=== PATIENT | male | born 1940 | race Caucasian/White ===

== ENCOUNTER 2016-12-19 18:50 | Inpatient (IN) | payer MEDICARE, OTHER ==
[~2016-12-19] VITALS: Ht 185.4 cm; Wt 69.9 kg
[~2016-12-19 18:50] MED LIST: ACET-73 PO; AMLO5TAB2 PO; FOLI1TAB16 PO; GABA-534 PO; LEVE500T9 PO; MAGN400O4 PO; OMEP20CA10 PO; TRAZ-144 PO; VITAMIN B1 PO
[2016-12-19 19:16] LABS: BASOPHILS % (AUTO) 0.3 % (0.0-2.0); EOSINOPHILS # (AUTO) 0.8 /CMM (0.0-0.7); HEMATOCRIT 35 % (39-51); LYMPHOCYTES # (AUTO) 2.1 /CMM (0.8-4.8); LYMPHOCYTES % (AUTO) 30.8 % (20.0-44.0); MEAN CORPUSCULAR HEMOGLOBIN 31 PG (26.0-33.0); MEAN CORPUSCULAR HGB CONC 34 g/dl (31.0-36.0); MEAN CORPUSCULAR VOLUME 92 fL (80-96); MONOCYTES # (AUTO) 0.8 /CMM (0.1-1.30); MONOCYTES % (AUTO) 11.5 % (2.0-12.0); NEUTROPHILS # (AUTO) 3.2 /CMM (1.8-8.9); NEUTROPHILS % (AUTO) 46.4 % (43.0-81.0); PLATELET COUNT (AUTO) 245 /CMM (150-450); RDW COEFFICIENT OF VARIATION 12.9 (11.5-15.0); RED BLOOD CELL COUNT(AUTO) 3.83 MIL/uL (4.5-6.0); WHITE BLOOD COUNT (AUTO) 6.9 K/uL (4.3-11.0)
[2016-12-19 19:29] LABS: ACETAMINOPHEN 4 ug/ml (10-30); ALANINE AMINOTRANSFERASE 16 U/L (12-78); ALBUMIN 3.1 g/dL (3.4-5.0); ALKALINE PHOSPHATASE 84 U/L (46-116); ASPARTATE AMINOTRANSFERASE 12 U/L (15-37); BILIRUBIN,TOTAL 0.1 mg/dL (0.2-1.0); CALCIUM, SERUM 8.9 mg/dL (8.5-10.1); CARBON DIOXIDE 32 mmol/L (21-32); CHLORIDE 103 mmol/L (98-107); GLUCOSE 109 mg/dL (74-106); POTASSIUM 4.6 mmol/L (3.5-5.1); SODIUM SERUM 138 mmol/L (136-145); UREA NITROGEN, BLOOD 21 mg/dL (7-18)
[2016-12-19 19:38] LABS: ALCOHOL, BLOOD < 5 mg/dL (0-0); SALICYLATE 1.4 mg/dL (2.8-20.0)
[2016-12-19] MEDS ORDERED: MAGNESIUM HYDROXIDE 30 ML UDC PO PRN (23:30)
[2016-12-19] MEDS ORDERED: LORAZEPAM 0.5 MG TABLET PO PRN (23:30)
[2016-12-19] MEDS ORDERED: MAG HYDROX/AL HYDROX/SIMETH 30 ML UDC PO PRN (23:30)
[2016-12-19] MEDS ORDERED: ACETAMINOPHEN 325 MG TABLET PO PRN (23:30)
[2016-12-20 00:38] VITALS: BP 95/50
[2016-12-20 08:00] VITALS: BP 102/59
[2016-12-20] MEDS ORDERED: LEVE250T2 PO (08:21)
[2016-12-20] MEDS ORDERED: THIA100T68 PO (08:21)
[2016-12-20] MEDS ORDERED: MULT-659 PO (08:21)
[2016-12-20] MEDS ORDERED: DOCU-25 PO (08:21)
[2016-12-20] MEDS ORDERED: AMIN30LI4 PO (08:21)
[2016-12-20] MEDS ORDERED: MAGN400O6 PO (08:21)
[2016-12-20] MEDS ORDERED: DEXT1CAP3 PO (08:21)
[2016-12-20] MEDS ORDERED: HYDR-3326 PO (08:21)
[2016-12-20] MEDS ORDERED: ASCO500T9 PO (08:21)
[2016-12-20 09:33] LABS: CREATININE 0.7 mg/dL (0.6-1.3)
[2016-12-20] MEDS ORDERED: MAGNESIUM HYDROXIDE 30 ML UDC PO PRN (12:00)
[2016-12-20] MEDS ORDERED: HYDROCODONE/APAP 5/325MG 1 EACH TABLET PO SCH (13:00)
[2016-12-20] MEDS ORDERED: HYDROCODONE/APAP 5/325MG 1 EACH TABLET PO PRN (13:00)
[2016-12-20 13:33] LABS: IRON, SERUM 88 ug/dl (50-175); TOTAL IRON BINDING CAPACITY 214 ug/dl (250-450)
[2016-12-20 16:00] VITALS: BP 129/66
[2016-12-20] MEDS: ASCORBIC ACID 500 MG TABLET PO SCH (17:52)
[2016-12-20] MEDS: PROSOURCE / PROSTAT (PYXIS) 30 ML UDC PO SCH (17:52)
[2016-12-20] MEDS: LEVETIRACETAM (250 MG) 250 MG TABLET PO SCH (21:28)
[2016-12-20] MEDS: ZOLPIDEM TARTRATE 5 MG TABLET PO PRN (21:47)
[2016-12-21] MEDS ORDERED: Medication Not On Formulary EA (Omeprazole 20 MG) PO SCH (07:30)
[2016-12-21] MEDS: PANTOPRAZOLE 40 MG TABLET.DR PO SCH ×2 (07:58→09:04)
[2016-12-21 08:00] VITALS: BP 135/79
[2016-12-21] MEDS: DOCUSATE SODIUM 100 MG CAPSULE PO SCH (09:03)
[2016-12-21] MEDS: FOLIC ACID 1 MG TABLET PO SCH (09:03)
[2016-12-21] MEDS: MULTIVITAMINS,THERAPEUTIC 1 UDTAB TABLET PO SCH (09:03)
[2016-12-21] MEDS: THIAMINE HCL 100 MG TABLET PO SCH (09:03)
[2016-12-21] MEDS: GABAPENTIN 300 MG CAPSULE PO SCH ×2 (09:03→22:14)
[2016-12-21] MEDS: AMLODIPINE BESYLATE 5 MG TABLET PO SCH (09:04)
[2016-12-21] MEDS: LEVETIRACETAM (250 MG) 250 MG TABLET PO SCH ×2 (09:04→20:18)
[2016-12-21 11:49] LABS: BASOPHILS % (AUTO) 0.2 % (0.0-2.0); EOSINOPHILS # (AUTO) 0.5 /CMM (0.0-0.7); EOSINOPHILS % (AUTO) 6.3 % (0.0-6.0); HEMATOCRIT 42 % (39-51); LYMPHOCYTES # (AUTO) 2.1 /CMM (0.8-4.8); LYMPHOCYTES % (AUTO) 24.7 % (20.0-44.0); MEAN CORPUSCULAR HEMOGLOBIN 31 PG (26.0-33.0); MEAN CORPUSCULAR HGB CONC 34 g/dl (31.0-36.0); MEAN CORPUSCULAR VOLUME 91 fL (80-96); MONOCYTES # (AUTO) 0.7 /CMM (0.1-1.30); MONOCYTES % (AUTO) 8.4 % (2.0-12.0); NEUTROPHILS # (AUTO) 5.2 /CMM (1.8-8.9); NEUTROPHILS % (AUTO) 60.4 % (43.0-81.0); PLATELET COUNT (AUTO) 280 /CMM (150-450); RDW COEFFICIENT OF VARIATION 13.9 (11.5-15.0); RED BLOOD CELL COUNT(AUTO) 4.56 MIL/uL (4.5-6.0); WHITE BLOOD COUNT (AUTO) 8.6 K/uL (4.3-11.0)
[2016-12-21 12:07] LABS: CALCIUM, SERUM 9.6 mg/dL (8.5-10.1); CREATININE 0.8 mg/dL (0.6-1.3); MAGNESIUM 1.9 mg/dL (1.8-2.4); POTASSIUM 4.2 mmol/L (3.5-5.1)
[2016-12-21] MEDS: GABAPENTIN 100 MG CAPSULE PO SCH ×2 (12:16→17:26)
[2016-12-21 16:06] VITALS: BP 127/70
[2016-12-21] MEDS: ASCORBIC ACID 500 MG TABLET PO SCH (17:26)
[2016-12-21] MEDS: PROSOURCE / PROSTAT (PYXIS) 30 ML UDC PO SCH (17:26)
[2016-12-21 20:00] VITALS: BP 100/64
[2016-12-21] MEDS: TRAZODONE 50 MG TABLET PO SCH (22:14)
[2016-12-22] MEDS: ZOLPIDEM TARTRATE 5 MG TABLET PO PRN (00:02)
[2016-12-22 08:09] LABS: IMMUNOGLOBULIN G, SERUM 1109 mg/dL (700-1600); IMMUNOGLOBULIN M, SERUM 803 mg/dL (15-143)
[2016-12-22 08:26] VITALS: BP 116/62
[2016-12-22] MEDS: DOCUSATE SODIUM 100 MG CAPSULE PO SCH (08:33)
[2016-12-22] MEDS: LEVETIRACETAM (250 MG) 250 MG TABLET PO SCH ×2 (08:33→21:36)
[2016-12-22] MEDS: GABAPENTIN 300 MG CAPSULE PO SCH ×2 (08:33→21:37)
[2016-12-22] MEDS: PANTOPRAZOLE 40 MG TABLET.DR PO SCH (08:34)
[2016-12-22] MEDS: AMLODIPINE BESYLATE 5 MG TABLET PO SCH (08:35)
[2016-12-22] MEDS: FOLIC ACID 1 MG TABLET PO SCH (08:35)
[2016-12-22] MEDS: MULTIVITAMINS,THERAPEUTIC 1 UDTAB TABLET PO SCH (08:35)
[2016-12-22] MEDS: THIAMINE HCL 100 MG TABLET PO SCH (08:35)
[2016-12-22] MEDS: GABAPENTIN 100 MG CAPSULE PO SCH ×3 (08:36→16:19)
[2016-12-22 13:11] LABS: IMMUNOGLOBULIN A, SERUM 233 mg/dL (61-437)
[2016-12-22 16:20] VITALS: BP 109/58
[2016-12-22] MEDS: ASCORBIC ACID 500 MG TABLET PO SCH (16:20)
[2016-12-22] MEDS: PROSOURCE / PROSTAT (PYXIS) 30 ML UDC PO SCH (16:20)
[2016-12-22 18:07] LABS: FREE LAMBDA LT CHAIN SERUM 43.36 mg/L (5.71-26.30)
[2016-12-22 20:00] VITALS: BP 102/51
[2016-12-22] MEDS: TRAZODONE 50 MG TABLET PO SCH (21:36)
[2016-12-23] MEDS: ZOLPIDEM TARTRATE 5 MG TABLET PO PRN (00:40)
[2016-12-23 08:00] VITALS: BP 101/56
[2016-12-23] MEDS: MULTIVITAMINS,THERAPEUTIC 1 UDTAB TABLET PO SCH (08:37)
[2016-12-23] MEDS: THIAMINE HCL 100 MG TABLET PO SCH (08:37)
[2016-12-23] MEDS: GABAPENTIN 300 MG CAPSULE PO SCH ×2 (08:37→21:06)
[2016-12-23] MEDS: PANTOPRAZOLE 40 MG TABLET.DR PO SCH (08:38)
[2016-12-23] MEDS: LEVETIRACETAM (250 MG) 250 MG TABLET PO SCH ×2 (08:38→21:05)
[2016-12-23] MEDS: FOLIC ACID 1 MG TABLET PO SCH (08:41)
[2016-12-23] MEDS: DOCUSATE SODIUM 100 MG CAPSULE PO SCH (08:41)
[2016-12-23] MEDS: AMLODIPINE BESYLATE 5 MG TABLET PO SCH (08:41)
[2016-12-23] MEDS: GABAPENTIN 100 MG CAPSULE PO SCH ×3 (08:41→17:28)
[2016-12-23 16:00] VITALS: BP 112/60
[2016-12-23] MEDS: PROSOURCE / PROSTAT (PYXIS) 30 ML UDC PO SCH (17:28)
[2016-12-23] MEDS: ASCORBIC ACID 500 MG TABLET PO SCH (17:28)
[2016-12-23 20:14] VITALS: BP 124/63
[2016-12-23] MEDS: TRAZODONE 50 MG TABLET PO SCH (21:05)
[2016-12-24 08:00] VITALS: BP 100/61
[2016-12-24] MEDS: PANTOPRAZOLE 40 MG TABLET.DR PO SCH (08:01)
[2016-12-24] MEDS: DOCUSATE SODIUM 100 MG CAPSULE PO SCH (08:03)
[2016-12-24] MEDS: FOLIC ACID 1 MG TABLET PO SCH (08:04)
[2016-12-24] MEDS: LEVETIRACETAM (250 MG) 250 MG TABLET PO SCH ×2 (08:05→21:12)
[2016-12-24] MEDS: GABAPENTIN 300 MG CAPSULE PO SCH ×2 (08:05→21:15)
[2016-12-24] MEDS: GABAPENTIN 100 MG CAPSULE PO SCH ×3 (08:05→16:17)
[2016-12-24] MEDS: AMLODIPINE BESYLATE 5 MG TABLET PO SCH (08:06)
[2016-12-24] MEDS: MULTIVITAMINS,THERAPEUTIC 1 UDTAB TABLET PO SCH (08:06)
[2016-12-24] MEDS: THIAMINE HCL 100 MG TABLET PO SCH (08:07)
[2016-12-24 16:00] VITALS: BP 108/64
[2016-12-24] MEDS: ASCORBIC ACID 500 MG TABLET PO SCH (17:44)
[2016-12-24] MEDS: PROSOURCE / PROSTAT (PYXIS) 30 ML UDC PO SCH (17:44)
[2016-12-24] MEDS: TRAZODONE 50 MG TABLET PO SCH (21:15)
[2016-12-24 21:33] VITALS: BP 135/83
[2016-12-24] MEDS ORDERED: ONDANSETRON 4 MG TAB.RAPDIS ONE (22:02)
[2016-12-24] MEDS ORDERED: ONDANSETRON 4 MG TAB.RAPDIS SL PRN (22:30)
[2016-12-25] MEDS: PANTOPRAZOLE 40 MG TABLET.DR PO SCH (08:03)
[2016-12-25] MEDS: LEVETIRACETAM (250 MG) 250 MG TABLET PO SCH ×2 (08:03→21:00)
[2016-12-25] MEDS: FOLIC ACID 1 MG TABLET PO SCH (08:03)
[2016-12-25] MEDS: MULTIVITAMINS,THERAPEUTIC 1 UDTAB TABLET PO SCH (08:04)
[2016-12-25] MEDS: GABAPENTIN 300 MG CAPSULE PO SCH ×2 (08:04→21:00)
[2016-12-25] MEDS: GABAPENTIN 100 MG CAPSULE PO SCH ×3 (08:04→16:49)
[2016-12-25] MEDS: DOCUSATE SODIUM 100 MG CAPSULE PO SCH (08:04)
[2016-12-25] MEDS: THIAMINE HCL 100 MG TABLET PO SCH (08:04)
[2016-12-25 08:31] VITALS: BP 113/47
[2016-12-25] MEDS: AMLODIPINE BESYLATE 5 MG TABLET PO SCH (09:00)
[2016-12-25 16:00] VITALS: BP 100/53
[2016-12-25] MEDS: PROSOURCE / PROSTAT (PYXIS) 30 ML UDC PO SCH (16:49)
[2016-12-25] MEDS: ASCORBIC ACID 500 MG TABLET PO SCH (16:50)
[2016-12-25 20:11] VITALS: BP 112/58
[2016-12-25] MEDS: TRAZODONE 50 MG TABLET PO SCH (21:00)
[2016-12-26] MEDS: PANTOPRAZOLE 40 MG TABLET.DR PO SCH (07:45)
[2016-12-26 08:00] VITALS: BP 101/49
[2016-12-26] MEDS: LEVETIRACETAM (250 MG) 250 MG TABLET PO SCH ×2 (08:13→21:27)
[2016-12-26] MEDS: GABAPENTIN 300 MG CAPSULE PO SCH ×2 (08:13→21:48)
[2016-12-26] MEDS: DOCUSATE SODIUM 100 MG CAPSULE PO SCH (08:13)
[2016-12-26] MEDS: GABAPENTIN 100 MG CAPSULE PO SCH ×3 (08:13→16:30)
[2016-12-26] MEDS: FOLIC ACID 1 MG TABLET PO SCH (08:13)
[2016-12-26] MEDS: MULTIVITAMINS,THERAPEUTIC 1 UDTAB TABLET PO SCH (08:14)
[2016-12-26] MEDS: THIAMINE HCL 100 MG TABLET PO SCH (08:14)
[2016-12-26] MEDS: AMLODIPINE BESYLATE 5 MG TABLET PO SCH (08:14)
[2016-12-26] MEDS: BOOST PLUS FOOD-VANILLA 237 ML BOX PO SCH ×2 (14:03→17:00)
[2016-12-26] MEDS: ASCORBIC ACID 500 MG TABLET PO SCH (17:02)
[2016-12-26 17:09] VITALS: BP 109/54
[2016-12-26 20:05] VITALS: BP 100/50
[2016-12-26 21:25] VITALS: BP 112/53
[2016-12-26] MEDS: TRAZODONE 50 MG TABLET PO SCH (21:47)
[2016-12-27 08:00] VITALS: BP 107/56
[2016-12-27] MEDS: BOOST PLUS FOOD-VANILLA 237 ML BOX PO SCH ×2 (08:08→16:01)
[2016-12-27] MEDS: PANTOPRAZOLE 40 MG TABLET.DR PO SCH (08:08)
[2016-12-27] MEDS: THIAMINE HCL 100 MG TABLET PO SCH (08:08)
[2016-12-27] MEDS: FOLIC ACID 1 MG TABLET PO SCH (08:08)
[2016-12-27] MEDS: GABAPENTIN 100 MG CAPSULE PO SCH ×3 (08:08→16:01)
[2016-12-27] MEDS: LEVETIRACETAM (250 MG) 250 MG TABLET PO SCH ×2 (08:09→21:19)
[2016-12-27] MEDS: ARIPIPRAZOLE 2 MG TABLET PO SCH ×2 (08:09→16:01)
[2016-12-27] MEDS: MULTIVITAMINS,THERAPEUTIC 1 UDTAB TABLET PO SCH (08:09)
[2016-12-27] MEDS: DOCUSATE SODIUM 100 MG CAPSULE PO SCH (08:09)
[2016-12-27] MEDS: AMLODIPINE BESYLATE 5 MG TABLET PO SCH (09:00)
[2016-12-27 16:00] VITALS: BP 108/63
[2016-12-27] MEDS: ASCORBIC ACID 500 MG TABLET PO SCH (16:42)
[2016-12-27 20:00] VITALS: BP 95/63
[2016-12-27] MEDS: ZOLPIDEM TARTRATE 5 MG TABLET PO PRN (21:31)
[2016-12-27] MEDS: GABAPENTIN 300 MG CAPSULE PO SCH (21:31)
[2016-12-27] MEDS ORDERED: TRAZODONE 50 MG TABLET PO SCH (22:00)
[2016-12-28 08:00] VITALS: BP 119/67
[2016-12-28] MEDS: BOOST PLUS FOOD-VANILLA 237 ML BOX PO SCH (08:17)
[2016-12-28 08:18] VITALS: BP 119/67
[2016-12-28] MEDS: FOLIC ACID 1 MG TABLET PO SCH (08:18)
[2016-12-28] MEDS: GABAPENTIN 100 MG CAPSULE PO SCH ×2 (08:18→12:34)
[2016-12-28] MEDS: AMLODIPINE BESYLATE 5 MG TABLET PO SCH (08:18)
[2016-12-28] MEDS: MULTIVITAMINS,THERAPEUTIC 1 UDTAB TABLET PO SCH (08:18)
[2016-12-28] MEDS: LEVETIRACETAM (250 MG) 250 MG TABLET PO SCH (08:18)
[2016-12-28] MEDS: DOCUSATE SODIUM 100 MG CAPSULE PO SCH (08:18)
[2016-12-28] MEDS: THIAMINE HCL 100 MG TABLET PO SCH (08:18)
[2016-12-28] MEDS: ARIPIPRAZOLE 2 MG TABLET PO SCH (08:19)
[2016-12-28] MEDS: PANTOPRAZOLE 40 MG TABLET.DR PO SCH (08:19)
== END 2016-12-28 14:10 | DRG 885 ==
LOC: ER 18:55 → GPS 23:04
PROVIDERS: ADMIT Psychiatry & Neurology Psychiatry; ATTEND Internal Medicine
DX: F29 Unspecified psychosis not due to a substance or known physiological condition (principal); F03.91 Unspecified dementia, unspecified severity, with behavioral disturbance; E44.0 Moderate protein-calorie malnutrition; K21.9 Gastro-esophageal reflux disease without esophagitis; I12.9 Hypertensive chronic kidney disease with stage 1 through stage 4 chronic kidney disease, or unspecified chronic kidney disease; N18.1 Chronic kidney disease, stage 1; G40.909 Epilepsy, unspecified, not intractable, without status epilepticus; J44.9 Chronic obstructive pulmonary disease, unspecified; D63.8 Anemia in other chronic diseases classified elsewhere; E78.5 Hyperlipidemia, unspecified; Z79.899 Other long term (current) drug therapy; S72.002D Fracture of unspecified part of neck of left femur, subsequent encounter for closed fracture with routine healing; X58.XXXD Exposure to other specified factors, subsequent encounter
CPT/HCPCS: 36415; 71010-TC; 80048-TC; 80061-TC; 80076-TC; 82565-TC; 82784; 83540-TC; 83735-TC; 84100-TC; 84484-TC; 85025-TC; 87081-TC; 97001-TC; A4606; G0480; G6039-TC; Q0162; Z7610

== ENCOUNTER 2017-05-08 22:26 | Inpatient (IN) | payer MEDICARE, OTHER ==
[~2017-05-08 22:26] MED LIST changes: +AMIN30LI4 PO; +ASCO500T9 PO; +DEXT1CAP3 PO; +DOCU-25 PO; +HYDR-3326 PO; +LEVE250T2 PO; -LEVE500T9 PO; -MAGN400O4 PO; +MAGN400O6 PO; +MULT-659 PO; +THIA100T68 PO; -TRAZ-144 PO; -VITAMIN B1 PO
[2017-05-08] MEDS ORDERED: ACETAMINOPHEN 650 MG/SUPP.RECT RC ONE ×2 (22:40→23:00)
[2017-05-08] MEDS ORDERED: IV NS 0.9% 500 ML BAG IV ONE (23:00)
[2017-05-08] MEDS ORDERED: LIDOCAINE 2% JEL UROJET 10 ML MM ONE ×2 (23:01→23:30)
[2017-05-08] MEDS ORDERED: AZTREONAM 1 G VIAL ONE (23:23)
[2017-05-08] MEDS ORDERED: LEVOFLOXACIN 750 MG /D5W 150ML PIGGYBACK IV ONE (23:30)
[2017-05-08] MEDS ORDERED: AZTREONAM 1 G in IV NS 0.9% 100 ML IV ONE (23:30)
[2017-05-09] MEDS ORDERED: ARIP2TAB9 PO (00:10)
[2017-05-09] MEDS ORDERED: HYDR-552 PO (00:10)
[2017-05-09] MEDS ORDERED: ACET325T53 PO (00:10)
[2017-05-09] MEDS ORDERED: PANT40TA2 PO (00:10)
[2017-05-09] MEDS ORDERED: AMLO5TAB4 PO (00:10)
[2017-05-09] MEDS ORDERED: ZOLP5TAB2 PO (00:10)
[2017-05-09] MEDS ORDERED: TRAZ-144 PO (00:10)
[2017-05-09] MEDS ORDERED: GABA300C PO (00:10)
[2017-05-09] MEDS ORDERED: LORA1TAB82 PO (00:10)
[2017-05-09] MEDS ORDERED: NA P133E RC (00:10)
[2017-05-09] MEDS ORDERED: IV NS 0.9% 500 ML BAG IV ONE (00:30)
[2017-05-09] MEDS ORDERED: LEVOFLOXACIN 750 MG /D5W 150ML 150 ML IV ONE (00:33)
[2017-05-09] MEDS ORDERED: LEVOFLOXACIN 500 MG /D5W 100ML 500 MG in PREMIX 1 EA IV SCH (02:00)
[2017-05-09] MEDS ORDERED: ACETAMINOPHEN 325 MG TABLET PO PRN (02:00)
[2017-05-09] MEDS ORDERED: PANTOPRAZOLE 40 MG VIAL IV SCH (11:00)
[2017-05-09] MEDS: FAMOTIDINE/PF INJ 20 MG/2 ML VIAL IV SCH ×2 (11:26→21:45)
[2017-05-09] MEDS: ALBUTEROL HALF STRENGTH 1.25 MG/3 ML VIAL.NEB NEB SCH ×4 (12:08→23:29)
[2017-05-09] MEDS: IPRATROPIUM NEB FS 0.5 MG/2.5 ML AMPUL.NEB NEB SCH ×4 (12:09→23:29)
[2017-05-09] MEDS ORDERED: ACET-2030 PO (16:20)
[2017-05-09] MEDS ORDERED: GABA-532 PO (16:20)
[2017-05-09] MEDS ORDERED: BISA10SU8 RC (16:20)
[2017-05-09] MEDS: PIPERACILLIN /TAZOBACTAM 3.375 G in IV D5W 50 ML IV SCH (21:45)
[2017-05-09] MEDS ORDERED: LORAZEPAM 0.5 MG TABLET PO PRN (22:30)
[2017-05-09] MEDS ORDERED: ZOLPIDEM TARTRATE 5 MG TABLET PO PRN (22:30)
[2017-05-09] MEDS ORDERED: TRAZODONE 50 MG TABLET ONE (22:38)
[2017-05-09] MEDS ORDERED: GABAPENTIN 300 MG CAPSULE ONE (22:39)
[2017-05-09] MEDS ORDERED: LEVETIRACETAM SOL (5 ML) 100 MG/ML UDC ONE (22:40)
[2017-05-09] MEDS: LEVETIRACETAM SOL (5 ML) 100 MG/ML UDC PO SCH (22:42)
[2017-05-09] MEDS: TRAZODONE 50 MG TABLET PO SCH (22:42)
[2017-05-09] MEDS: GABAPENTIN 300 MG CAPSULE PO SCH (22:42)
[2017-05-10] MEDS ORDERED: LEVOFLOXACIN 500 MG /D5W 100ML 500 MG in PREMIX 1 EA IV SCH (02:00)
[2017-05-10] MEDS: ALBUTEROL HALF STRENGTH 1.25 MG/3 ML VIAL.NEB NEB SCH ×6 (03:39→23:58)
[2017-05-10] MEDS: IPRATROPIUM NEB FS 0.5 MG/2.5 ML AMPUL.NEB NEB SCH ×6 (03:39→23:58)
[2017-05-10] MEDS: PIPERACILLIN /TAZOBACTAM 3.375 G in IV D5W 50 ML IV SCH (05:00)
[2017-05-10] MEDS ORDERED: NA PHOS,M-B/NA PHOS,DI-BA 1 EA ENEMA RC PRN (08:30)
[2017-05-10] MEDS ORDERED: HYDROCODONE/APAP 5/325MG 1 EACH TABLET PO PRN (08:30)
[2017-05-10] MEDS ORDERED: LORAZEPAM 1 MG TABLET PO PRN (08:30)
[2017-05-10] MEDS ORDERED: MAGNESIUM HYDROXIDE 30 ML UDC PO PRN (08:30)
[2017-05-10] MEDS ORDERED: ZOLPIDEM TARTRATE 5 MG TABLET PO PRN (08:30)
[2017-05-10] MEDS ORDERED: BISACODYL SUPP (10 MG) 10 MG/SUPP.RECT SUPP.RECT RC PRN (08:30)
[2017-05-10] MEDS: FAMOTIDINE/PF INJ 20 MG/2 ML VIAL IV SCH ×2 (08:37→21:13)
[2017-05-10] MEDS: LEVETIRACETAM SOL (5 ML) 100 MG/ML UDC PO SCH ×2 (08:37→21:13)
[2017-05-10] MEDS ORDERED: ACETAMINOPHEN ES 500 MG TABLET PO PRN (09:00)
[2017-05-10] MEDS ORDERED: LEVETIRACETAM (250 MG) 250 MG TABLET PO SCH (09:00)
[2017-05-10] MEDS ORDERED: ACETAMINOPHEN 325 MG TABLET PO PRN (09:00)
[2017-05-10] MEDS: DOCUSATE SODIUM 100 MG CAPSULE PO SCH (09:42)
[2017-05-10] MEDS: ASCORBIC ACID 500 MG TABLET PO SCH (09:42)
[2017-05-10] MEDS: FOLIC ACID 1 MG TABLET PO SCH (09:42)
[2017-05-10] MEDS: GABAPENTIN 100 MG CAPSULE PO SCH ×3 (09:42→17:38)
[2017-05-10] MEDS: THIAMINE HCL 100 MG TABLET PO SCH (09:42)
[2017-05-10] MEDS: ARIPIPRAZOLE 2 MG TABLET PO SCH ×2 (09:43→17:38)
[2017-05-10] MEDS: AMLODIPINE BESYLATE 5 MG TABLET PO SCH (09:43)
[2017-05-10] MEDS: PIPERACILLIN /TAZOBACTAM 4.5 G in IV D5W 50 ML IV SCH ×3 (13:14→23:07)
[2017-05-10] MEDS: TRAZODONE 50 MG TABLET PO SCH (21:13)
[2017-05-10] MEDS ORDERED: TRAZODONE 50 MG TABLET PO SCH (22:00)
[2017-05-10] MEDS ORDERED: GABAPENTIN 300 MG CAPSULE PO SCH (22:00)
[2017-05-11] MEDS: ALBUTEROL HALF STRENGTH 1.25 MG/3 ML VIAL.NEB NEB SCH ×6 (04:22→23:47)
[2017-05-11] MEDS: IPRATROPIUM NEB FS 0.5 MG/2.5 ML AMPUL.NEB NEB SCH ×6 (04:22→23:47)
[2017-05-11] MEDS: PIPERACILLIN /TAZOBACTAM 4.5 G in IV D5W 50 ML IV SCH ×3 (05:05→17:27)
[2017-05-11] MEDS: PANTOPRAZOLE 40 MG TABLET.DR PO SCH ×2 (07:30→08:33)
[2017-05-11] MEDS: FAMOTIDINE/PF INJ 20 MG/2 ML VIAL IV SCH ×3 (08:32→21:20)
[2017-05-11] MEDS: ARIPIPRAZOLE 2 MG TABLET PO SCH ×3 (08:33→16:36)
[2017-05-11] MEDS: FOLIC ACID 1 MG TABLET PO SCH ×2 (08:33→08:39)
[2017-05-11] MEDS: LEVETIRACETAM SOL (5 ML) 100 MG/ML UDC PO SCH ×3 (08:33→21:20)
[2017-05-11] MEDS: THIAMINE HCL 100 MG TABLET PO SCH ×2 (08:33→08:39)
[2017-05-11] MEDS: DOCUSATE SODIUM 100 MG CAPSULE PO SCH ×2 (08:33→08:38)
[2017-05-11] MEDS: ASCORBIC ACID 500 MG TABLET PO SCH ×2 (08:33→08:39)
[2017-05-11] MEDS: GABAPENTIN 100 MG CAPSULE PO SCH ×4 (08:33→16:37)
[2017-05-11] MEDS: AMLODIPINE BESYLATE 5 MG TABLET PO SCH ×2 (08:33→08:39)
[2017-05-11] MEDS: GABAPENTIN 300 MG CAPSULE PO SCH (21:20)
[2017-05-11] MEDS: TRAZODONE 50 MG TABLET PO SCH (21:20)
[2017-05-12] MEDS: PIPERACILLIN /TAZOBACTAM 4.5 G in IV D5W 50 ML IV SCH ×2 (00:54→06:03)
[2017-05-12] MEDS: IPRATROPIUM NEB FS 0.5 MG/2.5 ML AMPUL.NEB NEB SCH ×6 (03:23→23:18)
[2017-05-12] MEDS: ALBUTEROL HALF STRENGTH 1.25 MG/3 ML VIAL.NEB NEB SCH ×6 (03:23→23:18)
[2017-05-12] MEDS: LEVOFLOXACIN (500MG) 500 MG TABLET PO SCH (08:49)
[2017-05-12] MEDS: LEVETIRACETAM SOL (5 ML) 100 MG/ML UDC PO SCH ×2 (08:49→21:48)
[2017-05-12] MEDS: FAMOTIDINE/PF INJ 20 MG/2 ML VIAL IV SCH ×2 (08:49→21:48)
[2017-05-12] MEDS: PANTOPRAZOLE 40 MG TABLET.DR PO SCH (08:50)
[2017-05-12] MEDS: ASCORBIC ACID 500 MG TABLET PO SCH (08:50)
[2017-05-12] MEDS: ARIPIPRAZOLE 2 MG TABLET PO SCH ×2 (08:50→16:24)
[2017-05-12] MEDS: DOCUSATE SODIUM 100 MG CAPSULE PO SCH (08:50)
[2017-05-12] MEDS: GABAPENTIN 100 MG CAPSULE PO SCH ×3 (08:50→16:24)
[2017-05-12] MEDS: FOLIC ACID 1 MG TABLET PO SCH (08:50)
[2017-05-12] MEDS: THIAMINE HCL 100 MG TABLET PO SCH (08:53)
[2017-05-12] MEDS: AMLODIPINE BESYLATE 5 MG TABLET PO SCH (08:55)
[2017-05-12] MEDS: DIVALPROEX SODIUM 125 MG CAP.SPRINK PO SCH (16:25)
[2017-05-12] MEDS: GABAPENTIN 300 MG CAPSULE PO SCH (21:48)
[2017-05-12] MEDS: TRAZODONE 50 MG TABLET PO SCH (21:48)
[2017-05-13] MEDS: IPRATROPIUM NEB FS 0.5 MG/2.5 ML AMPUL.NEB NEB SCH ×6 (03:15→23:30)
[2017-05-13] MEDS: ALBUTEROL HALF STRENGTH 1.25 MG/3 ML VIAL.NEB NEB SCH ×6 (03:15→23:30)
[2017-05-13] MEDS: PANTOPRAZOLE 40 MG TABLET.DR PO SCH (08:29)
[2017-05-13] MEDS: THIAMINE HCL 100 MG TABLET PO SCH (08:35)
[2017-05-13] MEDS: GABAPENTIN 100 MG CAPSULE PO SCH ×3 (08:35→16:14)
[2017-05-13] MEDS: DOCUSATE SODIUM 100 MG CAPSULE PO SCH (08:35)
[2017-05-13] MEDS: ASCORBIC ACID 500 MG TABLET PO SCH (08:35)
[2017-05-13] MEDS: LEVOFLOXACIN (500MG) 500 MG TABLET PO SCH (08:35)
[2017-05-13] MEDS: DIVALPROEX SODIUM 125 MG CAP.SPRINK PO SCH ×2 (08:35→16:13)
[2017-05-13] MEDS: ARIPIPRAZOLE 2 MG TABLET PO SCH ×2 (08:35→16:14)
[2017-05-13] MEDS: LEVETIRACETAM SOL (5 ML) 100 MG/ML UDC PO SCH ×2 (08:35→21:20)
[2017-05-13] MEDS: FAMOTIDINE/PF INJ 20 MG/2 ML VIAL IV SCH ×2 (08:36→21:20)
[2017-05-13] MEDS: FOLIC ACID 1 MG TABLET PO SCH (08:36)
[2017-05-13] MEDS: AMLODIPINE BESYLATE 5 MG TABLET PO SCH (08:36)
[2017-05-13] MEDS: GABAPENTIN 300 MG CAPSULE PO SCH (21:21)
[2017-05-13] MEDS: TRAZODONE 50 MG TABLET PO SCH (21:21)
[2017-05-14] MEDS: IPRATROPIUM NEB FS 0.5 MG/2.5 ML AMPUL.NEB NEB SCH ×6 (03:02→23:08)
[2017-05-14] MEDS: ALBUTEROL HALF STRENGTH 1.25 MG/3 ML VIAL.NEB NEB SCH ×6 (03:02→23:08)
[2017-05-14] MEDS: PANTOPRAZOLE 40 MG TABLET.DR PO SCH (08:24)
[2017-05-14] MEDS: FAMOTIDINE/PF INJ 20 MG/2 ML VIAL IV SCH ×2 (08:24→22:57)
[2017-05-14] MEDS: LEVOFLOXACIN (500MG) 500 MG TABLET PO SCH (08:24)
[2017-05-14] MEDS: DIVALPROEX SODIUM 125 MG CAP.SPRINK PO SCH ×2 (08:24→17:09)
[2017-05-14] MEDS: GABAPENTIN 100 MG CAPSULE PO SCH ×3 (08:24→17:09)
[2017-05-14] MEDS: FOLIC ACID 1 MG TABLET PO SCH (08:24)
[2017-05-14] MEDS: ASCORBIC ACID 500 MG TABLET PO SCH (08:24)
[2017-05-14] MEDS: LEVETIRACETAM SOL (5 ML) 100 MG/ML UDC PO SCH ×2 (08:24→22:57)
[2017-05-14] MEDS: ARIPIPRAZOLE 2 MG TABLET PO SCH ×2 (08:25→17:09)
[2017-05-14] MEDS: AMLODIPINE BESYLATE 5 MG TABLET PO SCH (08:25)
[2017-05-14] MEDS: DOCUSATE SODIUM 100 MG CAPSULE PO SCH (08:25)
[2017-05-14] MEDS: THIAMINE HCL 100 MG TABLET PO SCH (09:00)
[2017-05-14] MEDS ORDERED: NITROGLYCERIN 4.9 GM SPRAY ONE (09:15)
[2017-05-14] MEDS: GABAPENTIN 300 MG CAPSULE PO SCH (22:57)
[2017-05-14] MEDS: TRAZODONE 50 MG TABLET PO SCH (22:58)
[2017-05-15] MEDS: IPRATROPIUM NEB FS 0.5 MG/2.5 ML AMPUL.NEB NEB SCH ×3 (02:44→10:40)
[2017-05-15] MEDS: ALBUTEROL HALF STRENGTH 1.25 MG/3 ML VIAL.NEB NEB SCH ×3 (02:44→10:40)
[2017-05-15] MEDS: PANTOPRAZOLE 40 MG TABLET.DR PO SCH (07:59)
[2017-05-15] MEDS: ASCORBIC ACID 500 MG TABLET PO SCH (08:34)
[2017-05-15] MEDS: LEVOFLOXACIN (500MG) 500 MG TABLET PO SCH (08:34)
[2017-05-15] MEDS: DOCUSATE SODIUM 100 MG CAPSULE PO SCH (08:34)
[2017-05-15] MEDS: LEVETIRACETAM SOL (5 ML) 100 MG/ML UDC PO SCH (08:34)
[2017-05-15] MEDS: THIAMINE HCL 100 MG TABLET PO SCH (08:34)
[2017-05-15] MEDS: ARIPIPRAZOLE 2 MG TABLET PO SCH (08:34)
[2017-05-15] MEDS: FAMOTIDINE/PF INJ 20 MG/2 ML VIAL IV SCH (08:34)
[2017-05-15] MEDS: FOLIC ACID 1 MG TABLET PO SCH (08:35)
[2017-05-15] MEDS: GABAPENTIN 100 MG CAPSULE PO SCH ×2 (08:35→13:00)
[2017-05-15] MEDS: DIVALPROEX SODIUM 125 MG CAP.SPRINK PO SCH (08:35)
[2017-05-15] MEDS: AMLODIPINE BESYLATE 5 MG TABLET PO SCH (08:35)
[2017-05-15] MEDS ORDERED: BARIUM SULFATE 148 GM SUSP.RECON PO ONE (11:03)
[2017-05-15] MEDS ORDERED: BARIUM SULFATE 240 ML ORAL.SUSP PO ONE (11:03)
== END 2017-05-15 14:30 | DRG 871 ==
DX: A41.9 Sepsis, unspecified organism (principal); J96.91 Respiratory failure, unspecified with hypoxia; J69.0 Pneumonitis due to inhalation of food and vomit; E44.0 Moderate protein-calorie malnutrition; G93.40 Encephalopathy, unspecified; K92.2 Gastrointestinal hemorrhage, unspecified; F03.91 Unspecified dementia, unspecified severity, with behavioral disturbance; J44.0 Chronic obstructive pulmonary disease with (acute) lower respiratory infection; N39.0 Urinary tract infection, site not specified; I45.2 Bifascicular block; D63.8 Anemia in other chronic diseases classified elsewhere; E78.5 Hyperlipidemia, unspecified; K21.9 Gastro-esophageal reflux disease without esophagitis; N18.1 Chronic kidney disease, stage 1; Z79.899 Other long term (current) drug therapy; G40.909 Epilepsy, unspecified, not intractable, without status epilepticus; F17.200 Nicotine dependence, unspecified, uncomplicated; B96.20 Unspecified Escherichia coli [E. coli] as the cause of diseases classified elsewhere; Z73.6 Limitation of activities due to disability; F29 Unspecified psychosis not due to a substance or known physiological condition; E88.09 Other disorders of plasma-protein metabolism, not elsewhere classified; Z68.21 Body mass index [BMI] 21.0-21.9, adult; F39 Unspecified mood [affective] disorder; C88.0 Waldenstrom macroglobulinemia; I12.9 Hypertensive chronic kidney disease with stage 1 through stage 4 chronic kidney disease, or unspecified chronic kidney disease; I51.9 Heart disease, unspecified; I49.1 Atrial premature depolarization

== ENCOUNTER 2017-05-30 11:53 | Inpatient (IN) | payer MEDICARE, OTHER ==
[~2017-05-30] VITALS: Ht 175.3 cm; Wt 62.6 kg
[~2017-05-30 11:53] MED LIST changes: +ACET-2030 PO; -AMIN30LI4 PO; -AMLO5TAB2 PO; +AMLO5TAB4 PO; +ARIP2TAB9 PO; +BISA10SU8 RC; -DEXT1CAP3 PO; +GABA-532 PO; -GABA-534 PO; +GABA300C PO; -HYDR-3326 PO; +HYDR-552 PO; +LORA1TAB82 PO; -MULT-659 PO; +NA P133E RC; -OMEP20CA10 PO; +PANT40TA2 PO; +TRAZ-144 PO; +ZOLP5TAB2 PO
--- NOTE | 2017-05-30 11:53 | NUR ---
BIB [facility] C/O WEAKNESS, DESATURATION, AND SODIUM OF 150. NAD NOTED. PT AOX1. O2 SATURATION CURRENTLY 86% ON 5L NC. PENDING MD KRAFT. RT PAGED. PT PLACED ON GOWN AND MONITOR.
[2017-05-30] MEDS ORDERED: IV NS 0.9% 1,000 ML BAG IV ONE (12:00)
[2017-05-30] MEDS ORDERED: IPRA0.2S9 IH (12:09)
[2017-05-30] MEDS ORDERED: DIVA125C PO (12:09)
[2017-05-30 12:39] LABS: BASOPHILS # (AUTO) 0.4 /CMM (0.0-0.2); BASOPHILS % (AUTO) 3.3 % (0.0-2.0); EOSINOPHILS # (AUTO) 0.2 /CMM (0.0-0.7); EOSINOPHILS % (AUTO) 1.2 % (0.0-6.0); HEMATOCRIT 37 % (39-51); HEMOGLOBIN 12.1 g/dL (13.5-17.5); LYMPHOCYTES # (AUTO) 1.5 /CMM (0.8-4.8); LYMPHOCYTES % (AUTO) 11.5 % (20.0-44.0); MEAN CORPUSCULAR HEMOGLOBIN 30 PG (26.0-33.0); MEAN CORPUSCULAR HGB CONC 33 g/dl (31.0-36.0); MEAN CORPUSCULAR VOLUME 92 fL (80-96); MONOCYTES # (AUTO) 1.1 /CMM (0.1-1.30); MONOCYTES % (AUTO) 8.2 % (2.0-12.0); NEUTROPHILS # (AUTO) 9.9 /CMM (1.8-8.9); NEUTROPHILS % (AUTO) 75.8 % (43.0-81.0); PLATELET COUNT (AUTO) 336 /CMM (150-450); RDW COEFFICIENT OF VARIATION 12.8 (11.5-15.0); RED BLOOD CELL COUNT(AUTO) 4.06 MIL/uL (4.5-6.0); WHITE BLOOD COUNT (AUTO) 13.1 K/uL (4.3-11.0)
[2017-05-30 12:49] LABS: CALCIUM, SERUM 8.6 mg/dL (8.5-10.1); CARBON DIOXIDE 29 mmol/L (21-32); CHLORIDE 114 mmol/L (98-107); CREATININE 0.8 mg/dL (0.6-1.3); GLUCOSE 119 mg/dL (74-106); POTASSIUM 3.6 mmol/L (3.5-5.1); SODIUM SERUM 153 mmol/L (136-145); UREA NITROGEN, BLOOD 22 mg/dL (7-18)
[2017-05-30 12:53] LABS: INR 1.02 (0.87-1.13); PROTHROMBIN TIME 10.6 SECS (9.5-12.7)
[2017-05-30 12:55] LABS: ALANINE AMINOTRANSFERASE 26 U/L (12-78); ALBUMIN 2.2 g/dL (3.4-5.0); ALKALINE PHOSPHATASE 66 U/L (46-116); ASPARTATE AMINOTRANSFERASE 27 U/L (15-37); BILIRUBIN,DIRECT 0.1 mg/dL (0.0-0.2); BILIRUBIN,TOTAL 0.4 mg/dL (0.2-1.0); TOTAL PROTEIN, SERUM 7.2 g/dL (6.4-8.2)
[2017-05-30 12:57] LABS: TROPONIN I < 0.017 ng/mL (0.00-0.056)
[2017-05-30 13:00] LABS: ABG BASE EXCESS 5.6 mmol/L; ABG OXYGEN SATURATION 82.7 % (92.0-98.5); ABG PCO2 40.5 mmHg (35.0-45.0); ABG PH 7.481 (7.350-7.450); ABG PO2 47.4 mmHg (75.0-100.0); AaDO2 118.9 mmHg; COHb 0.6 % (0.5-1.5); MetHb 0.2 % (0.0-1.5); SITE, ABG Right Radial; VENT MODE, BG NC 3L
--- NOTE | 2017-05-30 13:26 | NUR ---
PAGED TOBACCO DIPPER FOR DR HERNANDEZ.
[2017-05-30] MEDS ORDERED: IOHEXOL-350 100 ML VIAL IV ONE (13:29)
[2017-05-30] MEDS ORDERED: IV NS 0.9% 250 ML IV ONE (13:29)
[2017-05-30 13:45] LABS: APPEARANCE,URINE Clear (CLEAR); BILIRUBIN,URINE SMALL (NEGATIVE); BLOOD, URINE Negative Ery/uL (NEGATIVE); COLOR,URINE Yellow (YELLOW); KETONES,URINE Trace (NEGATIVE); LEUKOCYTE ESTERASE ,URINE Negative (NEGATIVE); NITRITE, URINE Negative (NEGATIVE); PROTEIN,URINE Trace mg/dl (NEGATIVE); UGLUCOSE Negative (NEGATIVE)
[2017-05-30 13:49] LABS: BACTERIA,URINE Rare /HPF (None Seen); RBC,URINE 0-2 /HPF (0-2); SQUAMOUS EPITHELIAL CELL,UR Rare /HPF (None Seen); WBC,URINE 0-2 /HPF (0-3)
--- NOTE | 2017-05-30 14:54 | NUR ---
PAGED DR JOANNA LE.
[2017-05-30] MEDS ORDERED: CEFTRIAXONE 1GM BAG (ER ONLY) 50 ML IV ONE ×2 (15:30→15:39)
[2017-05-30] MEDS ORDERED: AZITHROMYCIN 500 MG in IV D5W 250 ML IV ONE (15:30)
[2017-05-30] MEDS ORDERED: ACETAMINOPHEN ES 500 MG TABLET PO PRN (17:00)
[2017-05-30] MEDS ORDERED: ONDANSETRON HCL/PF 4 MG/2 ML VIAL IVP PRN (17:00)
[2017-05-30] MEDS ORDERED: MISCELLANEOUS MED 1 EA EA PO PRN (17:00)
[2017-05-30] MEDS ORDERED: ACETAMINOPHEN 325 MG TABLET PO PRN (17:00)
[2017-05-30] MEDS ORDERED: FEE PK DOSING 1 MIN EA MC ONE (17:11)
[2017-05-30 17:42] VITALS: BP 124/59
--- NOTE | 2017-05-30 17:44 | NUR ---
JUSTIN RN NOTES RECEIVED PT. FROM ER W/ DX. OF HYPERNATRIMIA, PNA UNDER CARE OF DR. REY MARSHALL. PT. IS ALERT AND ORIENTED X 1 TO NAME AND TOUCH. PT. IS SR ON TELE MONITOR. HL LEFT HAND AND RT AC PATENT AND INTACT. BED IN LOW POSITION AND LOCKED. PADDED SIDE RAILS DOWN. ADMISSION ORIENTATION DONE. BODY CHECK AND PICTURES DONE. CALL LIGHT W/IN REACH. NO SOB NOTED. WILL CONTINUE TO MONITOR CLOSELY. V/S DONE. NO BELONGINGS.
[2017-05-30] MEDS ORDERED: VANCOMYCIN 1 GM in IV D5W 250 ML IV ONE (18:00)
[2017-05-30] MEDS: DIVALPROEX SODIUM 125 MG CAP.SPRINK PO SCH (18:10)
[2017-05-30] MEDS: GABAPENTIN 100 MG CAPSULE PO SCH (18:11)
[2017-05-30] MEDS: IV 1/2NS 1000 ML 1,000 ML IV PRN (18:22)
--- NOTE | 2017-05-30 19:00 | NUR ---
FOUNDER PRESIDENT AND CEO NOTES PT. IS IN BED ALL NEEDS ATTENDED AND ORDERED [employer] MATTRESS. NOT IN ANY ACUTE DISTRESS. ENDORSE PM SHIFT TO F/U WITH DIET ORDERS.
[2017-05-30 20:00] VITALS: BP 99/53
[2017-05-30] MEDS: IPRATROPIUM NEB FS 0.5 MG/2.5 ML AMPUL.NEB IH SCH (20:19)
[2017-05-30] MEDS ORDERED: LEVOFLOXACIN 750 MG /D5W 150ML 750 MG in PREMIX 1 EA IV SCH (21:00)
[2017-05-30] MEDS: GABAPENTIN 300 MG CAPSULE PO SCH (21:11)
[2017-05-30] MEDS: TRAZODONE 50 MG TABLET PO SCH (21:11)
[2017-05-30] MEDS: LEVETIRACETAM (250 MG) 250 MG TABLET PO SCH (21:11)
[2017-05-30] MEDS: CEFEPIME 1 GM in IV D5W 50 ML IV SCH (21:14)
[2017-05-31] VITALS: BP 120/59
[2017-05-31] MEDS: IPRATROPIUM NEB FS 0.5 MG/2.5 ML AMPUL.NEB IH SCH ×7 (02:04→23:47)
[2017-05-31 04:00] VITALS: BP 103/57
[2017-05-31] MEDS: IV 1/2NS 1000 ML 1,000 ML IV PRN ×2 (05:02→18:03)
[2017-05-31] MEDS: VANCOMYCIN 0.75 GM in IV D5W 250 ML IV SCH ×2 (05:06→17:08)
[2017-05-31 07:24] LABS: EOSINOPHILS # (AUTO) 0.3 /CMM (0.0-0.7); HEMATOCRIT 34 % (39-51); HEMOGLOBIN 10.9 g/dL (13.5-17.5); LYMPHOCYTES # (AUTO) 1.5 /CMM (0.8-4.8); LYMPHOCYTES % (AUTO) 12.6 % (20.0-44.0); MEAN CORPUSCULAR HEMOGLOBIN 30 PG (26.0-33.0); MEAN CORPUSCULAR HGB CONC 32 g/dl (31.0-36.0); MEAN CORPUSCULAR VOLUME 94 fL (80-96); MONOCYTES # (AUTO) 0.8 /CMM (0.1-1.30); MONOCYTES % (AUTO) 6.7 % (2.0-12.0); NEUTROPHILS % (AUTO) 77.7 % (43.0-81.0); PLATELET COUNT (AUTO) 240 /CMM (150-450); RDW COEFFICIENT OF VARIATION 13.7 (11.5-15.0); RED BLOOD CELL COUNT(AUTO) 3.62 MIL/uL (4.5-6.0); WHITE BLOOD COUNT (AUTO) 11.6 K/uL (4.3-11.0)
--- NOTE | 2017-05-31 07:42 | NUR ---
SCHOOL LUNCH MONITOR NOTES RECEIVED PATIENT COMFORTABLY ASLEEP IN BED, EASILY AROUSABLE. ALERT AND ORIENTED X1, NO SIGNS OF PAIN OR DISCOMFORTS OBSERVED AT THIS TIME. ON TELE MONITORING WITH CURRENT READING OF SR AND HR OF 81. PT WITH HL ON LEFT HAND AND RT AC, BOTH PATENT AND INTACT. BED IN LOW POSITION AND LOCKED WITH PADDED SIDE RAILS UP APPROPRIATE. CALL LIGHT W/IN REACH. ALL SAFETY MEASURES IN PLACED. WILL CONTINUE TO MONITOR ACCORDINGLY.
[2017-05-31 07:55] LABS: CALCIUM, SERUM 8.5 mg/dL (8.5-10.1); CARBON DIOXIDE 29 mmol/L (21-32); CHLORIDE 112 mmol/L (98-107); CREATININE 0.7 mg/dL (0.6-1.3); GLUCOSE 121 mg/dL (74-106); PHOSPHORUS 2.9 mg/dL (2.5-4.9); POTASSIUM 3.5 mmol/L (3.5-5.1); SODIUM SERUM 148 mmol/L (136-145); UREA NITROGEN, BLOOD 14 mg/dL (7-18)
[2017-05-31 08:00] VITALS: BP 102/55
--- NOTE | 2017-05-31 08:58 | NUR ---
WOUND CARE CONSULT: PT PRESENTS WITH INTACT DEEP TISSUE INJURIES TO BILATERAL LATERAL FEET AND SACRUM, PRESENT ON ADMISSION. PT IS INCONTINENT, IMMOBILE WITH SEVERE LOWER EXTREMITY CONTRACTURES, MAKING OFFLOADING DIFFICULT. PT SCREAMS AND CURSES AT NURSING STAFF. RECOMMENDATIONS MADE FOR SKIN PROTECTION. DISCUSSED WITH NURSING STAFF. FIRST STEP MATTRESS ORDERED. ALL SKIN PROTECTION MEASURES IN PLACE. WILL SEE PRN. LONG IN AGREEMENT WITH PLAN OF CARE. Addendum: 05/31/17 at 0900 by BRUNILDA BANGURA WNDNU Amended: Links added.
[2017-05-31] MEDS: AMLODIPINE BESYLATE 5 MG TABLET PO SCH (09:00)
[2017-05-31] MEDS ORDERED: Z GUARD REMEDY 2 OZ OINT TP PRN (09:00)
[2017-05-31] MEDS: CEFEPIME 1 GM in IV D5W 50 ML IV SCH ×2 (09:27→21:23)
[2017-05-31] MEDS: THIAMINE HCL 100 MG TABLET PO SCH (09:28)
[2017-05-31] MEDS: ASCORBIC ACID 500 MG TABLET PO SCH (09:28)
[2017-05-31] MEDS: LEVETIRACETAM (250 MG) 250 MG TABLET PO SCH ×2 (09:28→21:25)
[2017-05-31] MEDS: FOLIC ACID 1 MG TABLET PO SCH (09:28)
[2017-05-31] MEDS: DIVALPROEX SODIUM 125 MG CAP.SPRINK PO SCH ×2 (09:28→17:07)
[2017-05-31] MEDS: Z GUARD REMEDY 2 OZ OINT TP SCH (09:29)
[2017-05-31] MEDS: GABAPENTIN 100 MG CAPSULE PO SCH ×3 (09:31→17:07)
[2017-05-31] MEDS: PANTOPRAZOLE 40 MG TABLET.DR PO SCH (09:33)
[2017-05-31 10:00] VITALS: BP 102/55
--- NOTE | 2017-05-31 11:44 | NUR ---
RN NOTES PT SEEN AND EVALUATED BY WOUND NURSE. WOUND TX ORDERS MADE. PT PLACED ON KCL MATTRESS. WILL CONTINUE TO MONITOR.
--- NOTE | 2017-05-31 15:34 | NUR ---
RN NOTES SWALLOW EVALUATION DONE BY SPEECH THERAPY. PT TO START ON CONSISTENT CARB PUREED AND NECTAR THICK LIQUID. FEED WITH 100% SUPERVISION, SLOW RATE OF FEEDING, ONE BITE/SIP AT A TIME. HOB AT UPRIGHT POSITION AND CHECK FOR ASPIRATION. CHECK FOR VERBAL CUES "SWALLOW HARD" AND "CLEAR THROAT". LEAVE PT UPRIGHT 30 MINUTES AFTER FEEDING. WILL CONTINUE YO MONITOR.
[2017-05-31 16:00] VITALS: BP 101/53
--- NOTE | 2017-05-31 18:36 | NUR ---
MS RN CLOSING NOTES PATIENT IN BED AT MODERATE HIGH BACKREST POSITION. ALERT AND ORIENTED X1-2. NON-COOPERATIVE TO CARE AT TIMES. PT ATE WELL HIS DINNER WITH ASSISTANCE. NO ASPIRATION NOTED. PT WITH HL ON LEFT HAND AND RT AC, BOTH PATENT AND INTACT, IVF OF 1/2 NS INFUSING WELL, NO SIGNS OF INFILTRATION NOTED. KEPT BED IN LOW POSITION AND LOCKED WITH PADDED SIDE RAILS UP APPROPRIATE. CALL LIGHT W/IN REACH. ALL SAFETY MEASURES MAINTAINED. ALL NEEDS AND CARE PROVIDED WELL. WILL ENDORSED TO CREATIVE SERVICES SPECIALIST NURSE FOR ELDA.
[2017-05-31 20:00] VITALS: BP 117/62
[2017-05-31] MEDS: GABAPENTIN 300 MG CAPSULE PO SCH (21:25)
[2017-05-31] MEDS: TRAZODONE 50 MG TABLET PO SCH (21:25)
[2017-05-31] MEDS: HYDROCODONE/APAP 5/325MG 1 EACH TABLET PO PRN (21:25)
[2017-06-01] MEDS: IPRATROPIUM NEB FS 0.5 MG/2.5 ML AMPUL.NEB IH SCH ×6 (03:36→23:59)
[2017-06-01 04:00] VITALS: BP_SYST 100; BP_SYST 109; BP_DIAS 56; BP_DIAS 65
[2017-06-01 06:02] LABS: SODIUM SERUM 143 mmol/L (136-145)
[2017-06-01 06:03] LABS: CALCIUM, SERUM 8.4 mg/dL (8.5-10.1); CARBON DIOXIDE 27 mmol/L (21-32); CHLORIDE 108 mmol/L (98-107); CREATININE 0.6 mg/dL (0.6-1.3); GLUCOSE 86 mg/dL (74-106); POTASSIUM 3.4 mmol/L (3.5-5.1); UREA NITROGEN, BLOOD 11 mg/dL (7-18)
[2017-06-01] MEDS: IV 1/2NS 1000 ML 1,000 ML IV PRN ×2 (06:04→18:52)
[2017-06-01] MEDS: HYDROCODONE/APAP 5/325MG 1 EACH TABLET PO PRN (06:05)
[2017-06-01] MEDS: VANCOMYCIN 0.75 GM in IV D5W 250 ML IV SCH ×2 (06:10→18:51)
--- NOTE | 2017-06-01 07:05 | NUR ---
MS RN NOTE: RECEIVED PT RESTING IN BED, EASILY AROUSABLE TO NAME. A&OX1. ON 6LPM O2 MASK, RESPIRATIONS EVEN AND UNLABORED WITH NO SOB NOTED. RAC PATENT AND INTACT AND LH PATENT AND INTACT WITH NS RUNNING AT 100ML/HR. SEIZURE PRECAUTIONS IN PLACE. BED LOW, LOCKED, X2 SIDE RAILS UP AND CALL LIGHT WITHIN REACH. WILL CONT TO MONITOR.
[2017-06-01 08:00] VITALS: BP 98/48
[2017-06-01] MEDS: AMLODIPINE BESYLATE 5 MG TABLET PO SCH (09:00)
[2017-06-01] MEDS: CEFEPIME 1 GM in IV D5W 50 ML IV SCH ×2 (09:06→20:58)
[2017-06-01] MEDS: ASCORBIC ACID 500 MG TABLET PO SCH (09:09)
[2017-06-01] MEDS: PANTOPRAZOLE 40 MG TABLET.DR PO SCH (09:09)
[2017-06-01] MEDS: LEVETIRACETAM (250 MG) 250 MG TABLET PO SCH ×2 (09:09→21:05)
[2017-06-01] MEDS: DIVALPROEX SODIUM 125 MG CAP.SPRINK PO SCH ×2 (09:09→17:32)
[2017-06-01] MEDS: THIAMINE HCL 100 MG TABLET PO SCH (09:09)
[2017-06-01] MEDS: GABAPENTIN 100 MG CAPSULE PO SCH ×3 (09:10→18:40)
[2017-06-01] MEDS: FOLIC ACID 1 MG TABLET PO SCH (09:10)
[2017-06-01] MEDS: Z GUARD REMEDY 2 OZ OINT TP SCH (09:13)
[2017-06-01] MEDS ORDERED: POTASSIUM CHLORIDE 20 MEQ TAB.PRT.SR PO SCH ×2 (11:30→17:30)
[2017-06-01 16:00] VITALS: BP 115/54
[2017-06-01] MEDS: LACTOBACILLUS RHAMNOSUS GG 1 EACH CAP.SPRINK PO SCH (17:32)
--- NOTE | 2017-06-01 19:00 | NUR ---
MS RN NOTE: NO ACUTE CHANGES DURING SHIFT. PATIENT REMAINED A&OX1. LH IV WITH 0.45% NS RUNNING AT 100ML/HR. SEIZURE PRECAUTIONS IN PLACE. ORDERS CARRIED OUT. BED LOW, LOCKED, X2 SIDE RAILS UP AND CALL LIGHT WITHIN REACH. WILL ENDORSE TO HEARING THERAPIST NURSE FOR ELDA.
[2017-06-01 20:00] VITALS: BP 118/63
[2017-06-01] MEDS: GABAPENTIN 300 MG CAPSULE PO SCH (21:31)
[2017-06-01] MEDS: TRAZODONE 50 MG TABLET PO SCH (21:35)
[2017-06-02] MEDS: IPRATROPIUM NEB FS 0.5 MG/2.5 ML AMPUL.NEB IH SCH ×6 (03:30→23:22)
[2017-06-02 04:00] VITALS: BP 113/49
[2017-06-02] MEDS: VANCOMYCIN 0.75 GM in IV D5W 250 ML IV SCH ×2 (05:23→17:26)
[2017-06-02 06:22] LABS: BASOPHILS % (AUTO) 0.2 % (0.0-2.0); EOSINOPHILS # (AUTO) 0.3 /CMM (0.0-0.7); EOSINOPHILS % (AUTO) 3.5 % (0.0-6.0); HEMATOCRIT 32 % (39-51); HEMOGLOBIN 10.4 g/dL (13.5-17.5); LYMPHOCYTES # (AUTO) 1.2 /CMM (0.8-4.8); LYMPHOCYTES % (AUTO) 13.9 % (20.0-44.0); MEAN CORPUSCULAR HEMOGLOBIN 30 PG (26.0-33.0); MEAN CORPUSCULAR HGB CONC 33 g/dl (31.0-36.0); MEAN CORPUSCULAR VOLUME 92 fL (80-96); MONOCYTES # (AUTO) 0.6 /CMM (0.1-1.30); MONOCYTES % (AUTO) 7.6 % (2.0-12.0); NEUTROPHILS # (AUTO) 6.3 /CMM (1.8-8.9); NEUTROPHILS % (AUTO) 74.8 % (43.0-81.0); PLATELET COUNT (AUTO) 252 /CMM (150-450); RDW COEFFICIENT OF VARIATION 13.3 (11.5-15.0); RED BLOOD CELL COUNT(AUTO) 3.45 MIL/uL (4.5-6.0); WHITE BLOOD COUNT (AUTO) 8.5 K/uL (4.3-11.0)
[2017-06-02 06:45] LABS: CALCIUM, SERUM 8.3 mg/dL (8.5-10.1); CARBON DIOXIDE 29 mmol/L (21-32); CHLORIDE 107 mmol/L (98-107); CREATININE 0.6 mg/dL (0.6-1.3); GLUCOSE 90 mg/dL (74-106); MAGNESIUM 1.6 mg/dL (1.8-2.4); PHOSPHORUS 2.9 mg/dL (2.5-4.9); POTASSIUM 3.1 mmol/L (3.5-5.1); SODIUM SERUM 142 mmol/L (136-145); UREA NITROGEN, BLOOD 5 mg/dL (7-18)
--- NOTE | 2017-06-02 07:51 | NUR ---
MS RN OPENING NOTE PATIENT IS ALERT AND ORIENTED x1. CONFUSED. NO PAIN NOTED AT THIS TIME. NO SOB OR DISTRESS NOTED. CALL LIGHT WITHIN REACH. SAFETY MEASURES IMPLEMENTED. ABLE TO COMMUNICATE NEEDS. NEEDS ASSISTANCE WITH FEEDING, ON CCHO PUREED DIET. TOLERATING WELL. ON 3L/MIN OF OXYGEN VIA NASAL CANNULA. IV INTACT AND PATENT NO REDNESS OR SWELLING NOTED. IV FLUIDS RUNNING AT THIS TIME, 1/2 NS AT 100 ML/HR TOLERATING WELL. WOUND TREATMENT TO BE DONE ON MY SHIFT. AM LABS DONE THIS MORNING. WILL CONTINUE TO MONITOR THROUGHOUT SHIFT
[2017-06-02 08:06] VITALS: BP 128/63
[2017-06-02] MEDS: CEFEPIME 1 GM in IV D5W 50 ML IV SCH ×2 (08:31→20:41)
[2017-06-02] MEDS: ASCORBIC ACID 500 MG TABLET PO SCH (08:32)
[2017-06-02] MEDS: AMLODIPINE BESYLATE 5 MG TABLET PO SCH (08:32)
[2017-06-02] MEDS: FOLIC ACID 1 MG TABLET PO SCH (08:32)
[2017-06-02] MEDS: THIAMINE HCL 100 MG TABLET PO SCH (08:32)
[2017-06-02] MEDS: DIVALPROEX SODIUM 125 MG CAP.SPRINK PO SCH ×2 (08:32→16:13)
[2017-06-02] MEDS: LACTOBACILLUS RHAMNOSUS GG 1 EACH CAP.SPRINK PO SCH ×2 (08:33→16:13)
[2017-06-02] MEDS: LEVETIRACETAM (250 MG) 250 MG TABLET PO SCH ×2 (08:33→22:56)
[2017-06-02] MEDS: PANTOPRAZOLE 40 MG TABLET.DR PO SCH (08:33)
[2017-06-02] MEDS: GABAPENTIN 100 MG CAPSULE PO SCH ×3 (08:33→16:13)
[2017-06-02] MEDS: Z GUARD REMEDY 2 OZ OINT TP SCH (08:35)
[2017-06-02] MEDS: IV 1/2NS 1000 ML 1,000 ML IV PRN (09:42)
--- NOTE | 2017-06-02 10:56 | NUR ---
MS RN NOTE PATIENT PULLED OUT IV. IV STARTED ON LEFT WRIST 22G. INTACT AND PATENT, FLUSHES WELL.
[2017-06-02] MEDS ORDERED: POTASSIUM CHLORIDE 20 MEQ TAB.PRT.SR PO SCH (11:00)
[2017-06-02] MEDS: Magnesium 1GM/D5W 100ML PREMIX 100 ML IV SCH ×2 (11:28→12:27)
[2017-06-02 12:00] VITALS: BP 128/63
[2017-06-02 15:30] VITALS: BP 123/65
--- NOTE | 2017-06-02 18:49 | NUR ---
MS RN CLOSING NOTE PATIENT IS ALERT AND ORIENTED x1. PERIODS OF CONFUSION. NO PAIN NOTED AT THIS TIME. NO SOB OR DISTRESS NOTED. CALL LIGHT WITHIN REACH AT ALL TIMES. SAFETY MEASURES IMPLEMENTED. ABLE TO COMMUNICATE NEEDS. ALL WOUND CARE TREATMENT AND DRESSINGS DONE THROUGHOUT SHIFT. INCONTINENT. IV ON LEFT WRIST INTACT AND PATENT NO REDNESS OR SWELLING NOTED, IVF FLUIDS RUNNING AT 100 ML/HR TOLERATING WELL. ALL DUE MEDICATIONS GIVEN ORDERED. ALL ELECTROLYTES REPLACED NEEDED. HAS AM LABS TOMORROW MORNING 06/03/17. WILL ENDORSE TO PROBATE CLERK NURSE FOR ELDA
--- NOTE | 2017-06-02 19:52 | NUR ---
Resting quietly, no distress noted.
[2017-06-02 20:00] VITALS: BP 111/52
[2017-06-02] MEDS: TRAZODONE 50 MG TABLET PO SCH (22:56)
[2017-06-02] MEDS: GABAPENTIN 300 MG CAPSULE PO SCH (22:56)
[2017-06-02] MEDS: HYDROCODONE/APAP 5/325MG 1 EACH TABLET PO PRN (23:16)
[2017-06-03] MEDS: IV 1/2NS 1000 ML 1,000 ML IV PRN (00:38)
[2017-06-03] MEDS: IPRATROPIUM NEB FS 0.5 MG/2.5 ML AMPUL.NEB IH SCH ×4 (03:35→15:30)
[2017-06-03 04:00] VITALS: BP 129/70
[2017-06-03] MEDS: VANCOMYCIN 0.75 GM in IV D5W 250 ML IV SCH ×2 (05:27→17:00)
[2017-06-03] MEDS: HYDROCODONE/APAP 5/325MG 1 EACH TABLET PO PRN (05:28)
[2017-06-03 06:25] LABS: BASOPHILS % (AUTO) 0.2 % (0.0-2.0); EOSINOPHILS # (AUTO) 0.3 /CMM (0.0-0.7); HEMATOCRIT 34 % (39-51); HEMOGLOBIN 11.3 g/dL (13.5-17.5); LYMPHOCYTES # (AUTO) 1.6 /CMM (0.8-4.8); LYMPHOCYTES % (AUTO) 17.4 % (20.0-44.0); MEAN CORPUSCULAR HEMOGLOBIN 31 PG (26.0-33.0); MEAN CORPUSCULAR HGB CONC 33 g/dl (31.0-36.0); MEAN CORPUSCULAR VOLUME 93 fL (80-96); MONOCYTES % (AUTO) 10.7 % (2.0-12.0); NEUTROPHILS # (AUTO) 6.2 /CMM (1.8-8.9); NEUTROPHILS % (AUTO) 68.7 % (43.0-81.0); PLATELET COUNT (AUTO) 285 /CMM (150-450); RDW COEFFICIENT OF VARIATION 13.2 (11.5-15.0); RED BLOOD CELL COUNT(AUTO) 3.69 MIL/uL (4.5-6.0)
[2017-06-03 06:32] LABS: CALCIUM, SERUM 8.6 mg/dL (8.5-10.1); CARBON DIOXIDE 30 mmol/L (21-32); CHLORIDE 108 mmol/L (98-107); CREATININE 0.5 mg/dL (0.6-1.3); GLUCOSE 93 mg/dL (74-106); PHOSPHORUS 2.7 mg/dL (2.5-4.9); POTASSIUM 3.6 mmol/L (3.5-5.1); SODIUM SERUM 143 mmol/L (136-145)
[2017-06-03 06:38] LABS: UREA NITROGEN, BLOOD 4 mg/dL (7-18)
[2017-06-03] MEDS: PANTOPRAZOLE 40 MG TABLET.DR PO SCH (06:50)
--- NOTE | 2017-06-03 07:04 | NUR ---
No acute distress noted,slept most of night, awoke grumpy
[2017-06-03 08:00] VITALS: BP 132/59
[2017-06-03] MEDS: GABAPENTIN 100 MG CAPSULE PO SCH ×3 (09:01→16:59)
[2017-06-03] MEDS: FOLIC ACID 1 MG TABLET PO SCH (09:01)
[2017-06-03] MEDS: CEFEPIME 1 GM in IV D5W 50 ML IV SCH (09:01)
[2017-06-03] MEDS: DIVALPROEX SODIUM 125 MG CAP.SPRINK PO SCH ×2 (09:01→16:59)
[2017-06-03] MEDS: AMLODIPINE BESYLATE 5 MG TABLET PO SCH (09:02)
[2017-06-03] MEDS: LACTOBACILLUS RHAMNOSUS GG 1 EACH CAP.SPRINK PO SCH ×2 (09:02→16:59)
[2017-06-03] MEDS: ASCORBIC ACID 500 MG TABLET PO SCH (09:02)
[2017-06-03] MEDS: LEVETIRACETAM (250 MG) 250 MG TABLET PO SCH (09:02)
[2017-06-03] MEDS: THIAMINE HCL 100 MG TABLET PO SCH (09:02)
[2017-06-03] MEDS: Z GUARD REMEDY 2 OZ OINT TP SCH (09:03)
[2017-06-03 12:00] VITALS: BP 132/68
== END 2017-06-03 19:07 | DRG 177 ==
LOC: ER 11:55 → TELE-TD 16:06 → TELE1 16:41 → MEDSG1 05-31 09:00
PROVIDERS: ADMIT Internal Medicine Nephrology; ATTEND Internal Medicine Nephrology
DX: J69.0 Pneumonitis due to inhalation of food and vomit (principal); J96.01 Acute respiratory failure with hypoxia; E87.0 Hyperosmolality and hypernatremia; I13.0 Hypertensive heart and chronic kidney disease with heart failure and stage 1 through stage 4 chronic kidney disease, or unspecified chronic kidney disease; I50.32 Chronic diastolic (congestive) heart failure; D63.8 Anemia in other chronic diseases classified elsewhere; S30.0XXA Contusion of lower back and pelvis, initial encounter; E44.0 Moderate protein-calorie malnutrition; J98.11 Atelectasis; F03.90 Unspecified dementia, unspecified severity, without behavioral disturbance, psychotic disturbance, mood disturbance, and anxiety; J44.9 Chronic obstructive pulmonary disease, unspecified; E78.5 Hyperlipidemia, unspecified; G40.909 Epilepsy, unspecified, not intractable, without status epilepticus; N18.1 Chronic kidney disease, stage 1; K21.9 Gastro-esophageal reflux disease without esophagitis; L89.610 Pressure ulcer of right heel, unstageable; L89.620 Pressure ulcer of left heel, unstageable; F29 Unspecified psychosis not due to a substance or known physiological condition; Z73.6 Limitation of activities due to disability; Z68.20 Body mass index [BMI] 20.0-20.9, adult; J40 Bronchitis, not specified as acute or chronic; X58.XXXA Exposure to other specified factors, initial encounter; Y93.9 Activity, unspecified; Y92.129 Unspecified place in nursing home as the place of occurrence of the external cause
CPT/HCPCS: 31720; 36415; 36600; 71010-TC; 80048-TC; 80076-TC; 80202-TC; 81000-TC; 83605-TC; 83735-TC; 84100-TC; 84484-TC; 85025-TC; 85730-TC; 87040-TC; 87081-TC; 87086-TC; 92611-TC; 94799-TC; A4216; A4606; J0456; J0692; J0696; J1956; J3370; J3475; J3490; J7030; J7050; J7060; Q9967; Z7610

== ENCOUNTER 2017-06-05 21:22 | Inpatient (IN) | payer MEDICARE, OTHER ==
[~2017-06-05] VITALS: Ht 180.3 cm; Wt 59.2 kg
[~2017-06-05 21:22] MED LIST changes: -ARIP2TAB9 PO; -BISA10SU8 RC; +DIVA125C PO; -DOCU-25 PO; +IPRA0.2S9 IH; -LORA1TAB82 PO; -MAGN400O6 PO; -NA P133E RC
--- NOTE | 2017-06-05 21:30 | NUR ---
TO BED 3 A 76 YO FEMALE BIBRA 76 FROM [facility] FOR SAT 89%. PER EMS ON SCENE, 99% ON RA. PAST HX ASPIRATION PNA. BASELINE A0X1. VSS. AFEBRILE. NAD NOTED. BREATHING EVEN AND UNLABORED. NONDIAPHORETIC. PLACED ON CARDIAC AND VS MONITORING. GOWNED. KEPT HOB ELEVATED. COMFORT MEASURES RENDERED.
--- NOTE | 2017-06-05 21:40 | NUR ---
started a saline lock on the rfa g20, blood drawn and sent to lab.
[2017-06-05] MEDS ORDERED: PIPERACILLIN /TAZOBACTAM 3.375 G VIAL IV ONE (21:50)
[2017-06-05 21:51] LABS: BASOPHILS # (AUTO) 0.3 /CMM (0.0-0.2); BASOPHILS % (AUTO) 3.1 % (0.0-2.0); EOSINOPHILS # (AUTO) 0.2 /CMM (0.0-0.7); EOSINOPHILS % (AUTO) 2.3 % (0.0-6.0); HEMATOCRIT 36 % (39-51); HEMOGLOBIN 11.4 g/dL (13.5-17.5); LYMPHOCYTES # (AUTO) 1.3 /CMM (0.8-4.8); LYMPHOCYTES % (AUTO) 12.7 % (20.0-44.0); MEAN CORPUSCULAR HEMOGLOBIN 29 PG (26.0-33.0); MEAN CORPUSCULAR HGB CONC 31 g/dl (31.0-36.0); MEAN CORPUSCULAR VOLUME 91 fL (80-96); MONOCYTES # (AUTO) 0.8 /CMM (0.1-1.30); MONOCYTES % (AUTO) 7.8 % (2.0-12.0); NEUTROPHILS % (AUTO) 74.1 % (43.0-81.0); PLATELET COUNT (AUTO) 378 /CMM (150-450); RED BLOOD CELL COUNT(AUTO) 4.01 MIL/uL (4.5-6.0); WHITE BLOOD COUNT (AUTO) 10.6 K/uL (4.3-11.0)
[2017-06-05] MEDS ORDERED: ALBUTEROL FS 2.5 MG/3 ML VIAL.NEB ONE (21:52)
[2017-06-05 21:58] LABS: CALCIUM, SERUM 9.2 mg/dL (8.5-10.1); CARBON DIOXIDE 34 mmol/L (21-32); CHLORIDE 102 mmol/L (98-107); CREATININE 0.7 mg/dL (0.6-1.3); GLUCOSE 109 mg/dL (74-106); POTASSIUM 3.8 mmol/L (3.5-5.1); SODIUM SERUM 140 mmol/L (136-145); UREA NITROGEN, BLOOD 8 mg/dL (7-18)
[2017-06-05] MEDS ORDERED: PIPERACILLIN /TAZOBACTAM 3.375 G in IV D5W 50 ML IV ONE (22:00)
[2017-06-05] MEDS ORDERED: ALBUTEROL FS 2.5 MG/3 ML VIAL.NEB NEB ONE (22:00)
[2017-06-05 22:11] LABS: B-TYPE NATRIURETIC PEPTIDE 253 PG/ML (0-125)
[2017-06-05 22:12] LABS: TROPONIN I < 0.017 ng/mL (0.00-0.056)
[2017-06-05 22:22] LABS: ALBUMIN 2.5 g/dL (3.4-5.0); BILIRUBIN,DIRECT 0.1 mg/dL (0.0-0.2); BILIRUBIN,TOTAL 0.2 mg/dL (0.2-1.0); TOTAL PROTEIN, SERUM 7.5 g/dL (6.4-8.2)
--- NOTE | 2017-06-05 22:29 | NUR ---
spoke with [place] nurse from [facility], she said the patient is normally on 3LPM via il, and has been lethargic since [address] Su notified.
[2017-06-05] MEDS ORDERED: VANCOMYCIN 1 GM in IV D5W 250 ML IV ONE (22:30)
[2017-06-05] MEDS ORDERED: LIDOCAINE 2% JEL UROJET 10 ML MM ONE ×2 (22:42→23:00)
--- NOTE | 2017-06-05 22:50 | NUR ---
RT at bedside for ABG draw.
--- NOTE | 2017-06-05 22:56 | NUR ---
Patient to cat scan of head.
[2017-06-05 22:57] LABS: ABG BASE EXCESS 5.5 mmol/L; ABG OXYGEN SATURATION 96.3 % (92.0-98.5); ABG PCO2 45.1 mmHg (35.0-45.0); ABG PH 7.445 (7.350-7.450); AaDO2 85.4 mmHg; COHb 0.3 % (0.5-1.5); MetHb 0.3 % (0.0-1.5); O2Hb 95.7 % (94.0-97.0); SITE, ABG Left Radial; VENT MODE, BG NASAL CANNULA
--- NOTE | 2017-06-05 23:06 | NUR ---
Patient back from ct.
--- NOTE | 2017-06-05 23:22 | NUR ---
insert coude michel catheter malay [address] Su's orders. no urine output noted. Per Dr Su, behzad to given vanco without urine collected at this time. will continue to monitor.
[2017-06-05] MEDS ORDERED: VANCOMYCIN 1 GM VIAL ONE (23:24)
--- NOTE | 2017-06-05 23:40 | NUR ---
URINE COLLECTED VIA DOUGHERTY CATHETER, CALLED LAB FOR RELAY ADJUSTER. PER DR DURON, ARPAN DOUGHERTY. NOTED AND CARRIED OUT.
[2017-06-05] MEDS ORDERED: VALPROIC ACID 250 MG/5 ML UDC ONE (23:51)
[2017-06-06] VITALS (7 sets, daily range): BP systolic 108–118; BP diastolic 56–66
[2017-06-06] MEDS ORDERED: VALPROIC ACID 250 MG/5 ML UDC PO ONE
--- NOTE | 2017-06-06 00:01 | NUR ---
PT ASSIGNED TO 325-1
--- NOTE | 2017-06-06 00:15 | NUR ---
Report given to Arbaella for tele admission and elizabeth.
[2017-06-06 00:25] LABS: APPEARANCE,URINE CLEAR (CLEAR); BILIRUBIN,URINE NEGATIVE (NEGATIVE); BLOOD, URINE 2+ Ery/uL (NEGATIVE); COLOR,URINE YELLOW (YELLOW); KETONES,URINE 1+ (NEGATIVE); LEUKOCYTE ESTERASE ,URINE NEGATIVE (NEGATIVE); NITRITE, URINE NEGATIVE (NEGATIVE); PH,URINE 6.5 (5.0-8.0); PROTEIN,URINE NEGATIVE (NEGATIVE); UGLUCOSE NEGATIVE (NEGATIVE)
--- NOTE | 2017-06-06 00:30 | NUR ---
Transferred patient to tele bed 313-1 via als protocol, no incident noted.
[2017-06-06] MEDS ORDERED: AMLO5TAB4 PO (00:32)
[2017-06-06 00:37] LABS: BACTERIA,URINE Rare /HPF (None Seen); RBC,URINE 51-80 /HPF (0-2); SQUAMOUS EPITHELIAL CELL,UR Rare /HPF (None Seen); WBC,URINE 0-2 /HPF (0-3)
--- NOTE | 2017-06-06 01:00 | NUR ---
RADIO SURVEY WORKER NOTE RECEIVED PATIENT AWAKE IN BED ON 3 LITER O2 VIA NASAL CANNULA. NON-VERBAL. NO S/S OF PAIN OR DISCOMFORT. NO COPD EXACERBATION. BILATERAL LEGS CONTRACTED. ORIENTED PATIENT TO ROOM AND TO UNIT. CLEANED PATIENT, SACRAL REDNESS NOTED. PICTURE TAKEN AND PLACED IN CHART. WOUND CARE CONSULT ORDERED. CLEANSED WITH NS, PAT DRY AND APPLIED MEPILEX. ALL BELONGINGS CHECKED AND ACCOUNTED FOR. BED LOCKED AND IN LOWEST POSITION. SIDE RAILS UP, CALL LIGHT WITHIN REACH. WILL CONTINUE TO MONITOR.
[2017-06-06] MEDS ORDERED: methylPREDNISolone SOD SUCC 40 MG/ML VIAL ONE (01:06)
[2017-06-06] MEDS: methylPREDNISolone SOD SUCC 40 MG/ML VIAL IV SCH ×3 (01:42→20:52)
--- NOTE | 2017-06-06 06:23 | NUR ---
COLOR MAKER DYER CLOSING NOTE PATIENT STABLE. TELE SR 90. RECEIVING 3L OXYGEN VIA NASAL CANNULA. IV SITES INTACT, WITH NO REDNESS OR INFILTRATION NOTED. PATIENT TURNED AND REPOSITIONED EVERY TWO HOURS. KEPT CLEAN AND DRY. MRSA SWAB DONE AND PLACED IN LAB [facility]. WILL ENDORSE TO DAY SHIFT FOR ELDA.
[2017-06-06 06:52] LABS: ALANINE AMINOTRANSFERASE 17 U/L (12-78); ALBUMIN 2.4 g/dL (3.4-5.0); ALKALINE PHOSPHATASE 74 U/L (46-116); ASPARTATE AMINOTRANSFERASE 15 U/L (15-37); BILIRUBIN,TOTAL 0.2 mg/dL (0.2-1.0); CALCIUM, SERUM 9.2 mg/dL (8.5-10.1); CARBON DIOXIDE 34 mmol/L (21-32); CHLORIDE 102 mmol/L (98-107); CREATININE 0.7 mg/dL (0.6-1.3); GLUCOSE 136 mg/dL (74-106); POTASSIUM 4.2 mmol/L (3.5-5.1); SODIUM SERUM 139 mmol/L (136-145); TOTAL PROTEIN, SERUM 7.4 g/dL (6.4-8.2); UREA NITROGEN, BLOOD 9 mg/dL (7-18)
[2017-06-06 07:20] LABS: EOSINOPHILS % (AUTO) 0.2 % (0.0-6.0); HEMATOCRIT 35 % (39-51); HEMOGLOBIN 11.5 g/dL (13.5-17.5); LYMPHOCYTES # (AUTO) 0.5 /CMM (0.8-4.8); LYMPHOCYTES % (AUTO) 5.4 % (20.0-44.0); MEAN CORPUSCULAR HEMOGLOBIN 30 PG (26.0-33.0); MEAN CORPUSCULAR HGB CONC 33 g/dl (31.0-36.0); MEAN CORPUSCULAR VOLUME 92 fL (80-96); MONOCYTES # (AUTO) 0.1 /CMM (0.1-1.30); MONOCYTES % (AUTO) 1.1 % (2.0-12.0); NEUTROPHILS # (AUTO) 9.1 /CMM (1.8-8.9); NEUTROPHILS % (AUTO) 93.3 % (43.0-81.0); PLATELET COUNT (AUTO) 343 /CMM (150-450); RDW COEFFICIENT OF VARIATION 13.3 (11.5-15.0); RED BLOOD CELL COUNT(AUTO) 3.81 MIL/uL (4.5-6.0); WHITE BLOOD COUNT (AUTO) 9.8 K/uL (4.3-11.0)
--- NOTE | 2017-06-06 08:00 | NUR ---
HAND II BLOCKER OPENING NOTES RECEIVED PT IN STABLE CONDITION. 2 RIGHT FOREARM 20G IV INTACT AND PATENT. BEDSIDE RAILS ARE UP X2. BED IS LOCKED AND LOWERED. WILL CONTINUE TO MONITOR.
[2017-06-06] MEDS ORDERED: MAGN400O6 PO (08:31)
[2017-06-06] MEDS ORDERED: MULT-659 PO (08:31)
[2017-06-06] MEDS ORDERED: BISA10SU8 RC (08:31)
[2017-06-06] MEDS ORDERED: ALBU1.257 IH (08:31)
[2017-06-06] MEDS ORDERED: ACID1TAB12 PO (08:31)
[2017-06-06] MEDS ORDERED: DOCU-25 PO (08:31)
[2017-06-06] MEDS ORDERED: ZINC220C8 PO (08:31)
[2017-06-06] MEDS ORDERED: NA P133E RC (08:31)
[2017-06-06] MEDS ORDERED: BISACODYL SUPP (10 MG) 10 MG/SUPP.RECT SUPP.RECT RC PRN (12:00)
[2017-06-06] MEDS ORDERED: HYDROCODONE/APAP 5/325MG 1 EACH TABLET PO PRN (12:00)
[2017-06-06] MEDS ORDERED: MAGNESIUM HYDROXIDE 30 ML UDC PO PRN (12:00)
[2017-06-06] MEDS ORDERED: NA PHOS,M-B/NA PHOS,DI-BA 1 EA ENEMA RC PRN (12:00)
[2017-06-06] MEDS ORDERED: ACETAMINOPHEN ES 500 MG TABLET PO PRN (12:30)
[2017-06-06] MEDS: LACTOBACILLUS RHAMNOSUS GG 1 EACH CAP.SPRINK PO SCH ×2 (12:30→17:00)
[2017-06-06] MEDS ORDERED: ACETAMINOPHEN 325 MG TABLET PO PRN (12:30)
[2017-06-06] MEDS: PIPERACILLIN /TAZOBACTAM 4.5 G in IV D5W 50 ML IV SCH ×3 (12:58→21:35)
[2017-06-06] MEDS: GABAPENTIN 100 MG CAPSULE PO SCH ×2 (13:00→17:00)
--- NOTE | 2017-06-06 15:00 | NUR ---
MACHINE COIL ASSEMBLER NOTES PATIENT SEEN BY SPEECH THERAPY PATIENT NOTED WITH COUGHING WITH DRINKING THICK LIQUIDS PER SPEECH THERAPY RECOMMENDATION PATIENT NOT SAFE TO EAT. WILL FOLLOW UP IN THE AM.
[2017-06-06] MEDS: ALBUTEROL HALF STRENGTH 1.25 MG/3 ML VIAL.NEB IH SCH ×2 (15:30→19:30)
[2017-06-06] MEDS: IPRATROPIUM NEB FS 0.5 MG/2.5 ML AMPUL.NEB IH SCH ×2 (15:30→19:30)
[2017-06-06] MEDS: DIVALPROEX SODIUM 125 MG CAP.SPRINK PO SCH (17:00)
[2017-06-06] MEDS: DOCUSATE SODIUM 100 MG CAPSULE PO SCH (17:00)
--- NOTE | 2017-06-06 19:10 | NUR ---
SMALL KICK PRESS OPERATOR CLOSING NOTES PATIENT IS RELAXING IN BED. PATIENT IS STABLE. BEDSIDE RAILS ARE UP X2. BED IS LOCKED AND LOWERED. WILL ENDORSE PATIENT TO EARTH MOVING MACHINE OPERATOR NURSE FOR ELDA.
--- NOTE | 2017-06-06 19:32 | NUR ---
ELECTRIC WIRER CLOSING NOTES PATIENT IS ALERT AND RESTING IN BED. BEDSIDE RAILS ARE UP X2. BED IS LOCKED AND LOWERED. WILL ENDORSE CARE TO SHIRRING TENDER NURSE FOR ELDA.
--- NOTE | 2017-06-06 19:40 | NUR ---
TECHNOLOGY DEVELOPMENT INTERN INITIAL NOTES PT IS IN BED SLEEPING, NO SIGNS OF SOB OR DISTRESS. BED ALARM ON. NPO STAUTS PER [facility] CHANGED TO IV. BED IS IN LOW AND LOCKED POSITION. WILL CONTINUE TO MONITOR PT
[2017-06-06] MEDS: LEVETIRACETAM (500MG) 500 MG in IV NS 0.9% 100 ML IV SCH (20:49)
[2017-06-06] MEDS ORDERED: LEVETIRACETAM (250 MG) 250 MG TABLET PO SCH (21:00)
[2017-06-06] MEDS: GABAPENTIN 300 MG CAPSULE PO SCH (21:02)
[2017-06-06] MEDS: TRAZODONE 50 MG TABLET PO SCH (21:02)
[2017-06-06] MEDS ORDERED: MORPHINE SULFATE INJ 2 MG/ML DISP.SYRIN ONE (21:32)
[2017-06-06] MEDS: MORPHINE SULFATE INJ 2 MG/ML DISP.SYRIN IV PRN (21:35)
[2017-06-06] MEDS ORDERED: ZOLPIDEM TARTRATE 5 MG TABLET PO PRN (22:00)
[2017-06-07] MEDS ORDERED: MORPHINE SULFATE INJ 2 MG/ML DISP.SYRIN ONE (01:37)
[2017-06-07] MEDS: MORPHINE SULFATE INJ 2 MG/ML DISP.SYRIN IV PRN (01:50)
[2017-06-07] MEDS: PIPERACILLIN /TAZOBACTAM 4.5 G in IV D5W 50 ML IV SCH ×4 (03:40→21:01)
--- NOTE | 2017-06-07 06:15 | NUR ---
MS RN CLOSING NOTES PT IS IN BED SLEEPING, NO SIGNS OF SOB OR DISTRESS. NO COMPLAINTS OF PAIN AT THIS TIME. IV ACCESS IS INTACT AND PATENT. ASPIRATION PRECAUTIONS MAINTAINED.BED IS IN LOW AND LOCKED POSITION, CALL LIGHT WITHIN REACH. WILL ENDORSE TO DAY SHIFT.
--- NOTE | 2017-06-07 07:23 | NUR ---
MS RN OPENING NOTES PT RECEIVED ASLEEP IS IN BED, AROUSES EASILY. HOB ELEVATED. A/O X1, NO SIGNS OF PAIN OR DISCOMFORTS OBSERVED AT THIS TIME. ON 02 VIA N/C @ 3LPM, TOLERATING WELL WITH NO SOB NOTED. IV ACCESS IS INTACT AND PATENT. ASPIRATION PRECAUTIONS MAINTAINED. BED IS IN LOW AND LOCKED POSITION, CALL LIGHT WITHIN REACH. WILL CONTINUE ALL SAFETY MEASURES AND WILL CONTINUE TO MONITOR PT'S STATUS ACCORDINGLY.
[2017-06-07] MEDS: PANTOPRAZOLE 40 MG TABLET.DR PO SCH (07:30)
[2017-06-07 08:00] VITALS: BP 128/64
[2017-06-07] MEDS: FOLIC ACID 1 MG TABLET PO SCH (08:59)
[2017-06-07] MEDS: DIVALPROEX SODIUM 125 MG CAP.SPRINK PO SCH ×2 (08:59→17:19)
[2017-06-07] MEDS: DOCUSATE SODIUM 100 MG CAPSULE PO SCH ×2 (08:59→17:19)
[2017-06-07] MEDS: LACTOBACILLUS RHAMNOSUS GG 1 EACH CAP.SPRINK PO SCH ×2 (08:59→17:19)
[2017-06-07] MEDS: GABAPENTIN 100 MG CAPSULE PO SCH ×3 (09:00→17:19)
[2017-06-07] MEDS: ASCORBIC ACID 500 MG TABLET PO SCH (09:00)
[2017-06-07] MEDS: MULTIVITAMINS,THERAGRAN 1 UDTAB TABLET PO SCH (09:00)
[2017-06-07] MEDS: THIAMINE HCL 100 MG TABLET PO SCH (09:00)
[2017-06-07] MEDS: AMLODIPINE BESYLATE 5 MG TABLET PO SCH (09:00)
[2017-06-07] MEDS: ZINC SULFATE 220 MG CAPSULE PO SCH (09:00)
--- NOTE | 2017-06-07 09:02 | NUR ---
RN NOTES PATIENT'S P.O. MEDS NOT GIVEN THIS MORNING. PT IS NPO AND HE'S RISK OF ASPIRATION. WILL CONTINUE TO MONITOR
[2017-06-07] MEDS: methylPREDNISolone SOD SUCC 40 MG/ML VIAL IV SCH ×2 (09:14→20:22)
[2017-06-07] MEDS: LEVETIRACETAM (500MG) 500 MG in IV NS 0.9% 100 ML IV SCH ×2 (09:14→20:22)
[2017-06-07] MEDS: IPRATROPIUM NEB FS 0.5 MG/2.5 ML AMPUL.NEB IH SCH ×5 (10:36→23:29)
[2017-06-07] MEDS: ALBUTEROL HALF STRENGTH 1.25 MG/3 ML VIAL.NEB IH SCH ×5 (10:37→23:29)
--- NOTE | 2017-06-07 11:49 | NUR ---
RN NOTES PT RE-EVALUATED FOR SWALLOWING THIS MORNING. HE'S ABLE TO TOLERATE PUREED AND PUDDING THICK LIQUID DIET WITHOUT ASPIRATION. PER ST, PT SHOULD BE ON STRICT ASPIRATION PRECAUTIONS WHEN FEEDING AND SHOULD BE FULLY AWAKE WITH SMALL BITE WHEN FEEDING AND IN UPRIGHT POSITION. CLOSELY MONITOR PT WHEN FEEDING.
--- NOTE | 2017-06-07 14:39 | NUR ---
WOUND CARE CONSULT: PT PRESENTS WITH DEEP TISSUE INJURIES (INTACT) TO BILATERAL LATERAL FEET AND STAGE 2 ULCER TO SACRUM, PRESENT ON ADMISSION. PT HAS CONTRACTED LOWER EXTREMITIES MAKING OFFLOADING DIFFICULT. RECOMMEND LOW AIRLOSS BED (NICOLE ISOFLEX), TO BE PLACED WHEN AVAILABLE. ALL SKIN PROTECTION AND WOUND RECOMMENDATIONS DISCUSSED WITH NURSING STAFF. PT FOLLOWED BY PLASTICS/PODIATRY TEAM. WILL SEE PRN. LONG IN AGREEMENT WITH PLAN OF CARE. Addendum: 06/07/17 at 1441 by BRUNILDA BANGURA WNDNU Amended: Links added.
[2017-06-07] MEDS ORDERED: Z GUARD REMEDY 2 OZ OINT TP PRN (15:00)
[2017-06-07 16:00] VITALS: BP 113/63
[2017-06-07] MEDS: HYDROGEL DRESSING 90 GM TUBE TP PRN ×2 (16:11→16:57)
[2017-06-07] MEDS: HYDROGEL DRESSING 90 GM TUBE TP SCH (16:59)
--- NOTE | 2017-06-07 18:52 | NUR ---
MS RN CLOSING NOTES PT RESTING IN BED AT MODERATE HIGH BACKREST POSITION. A/O X1-2, VERBALLY RESPONSIVE WITH EPISODE OF CONFUSION NOTED DURING THE DAY. CONTINUES ON 02 VIA N/C @ 3LPM, TOLERATING WELL WITH NO SOB NOTED. BOTH IV ACCESS ON RIGHT FA INTACT AND PATENT. ASPIRATION PRECAUTIONS MAINTAINED. HOB KEPT ELEVATED. BED IS IN LOW AND LOCKED POSITION, CALL LIGHT WITHIN REACH. ALL NEEDS AND CARE PROVIDED WELL. WILL ENDORSED TO BODY ROLLING MACHINE TENDER NURSE FOR ELDA.
--- NOTE | 2017-06-07 19:23 | NUR ---
MS RN INITIAL NOTES PT IS IN BED AWAKE AND ALERT. NO SIGNS OF SOB OR DISTRESS. ON 3L NC BREATHING EVENLY AND UNLABORED. PT IS NOW ON PUREE DIET . BED IS IN LOW AND LOCKED POSITION, CALL LIGHT WITHIN REACH. WILL CONTINUE TO MONITOR.
[2017-06-07 20:00] VITALS: BP 126/60
[2017-06-07] MEDS: TRAZODONE 50 MG TABLET PO SCH (21:01)
[2017-06-07] MEDS: GABAPENTIN 300 MG CAPSULE PO SCH (21:01)
[2017-06-08] MEDS: PIPERACILLIN /TAZOBACTAM 4.5 G in IV D5W 50 ML IV SCH ×3 (03:39→16:10)
[2017-06-08] MEDS: IPRATROPIUM NEB FS 0.5 MG/2.5 ML AMPUL.NEB IH SCH ×6 (03:44→23:59)
[2017-06-08] MEDS: ALBUTEROL HALF STRENGTH 1.25 MG/3 ML VIAL.NEB IH SCH ×6 (03:44→23:59)
--- NOTE | 2017-06-08 06:15 | NUR ---
MS RN CLOSING NOTES PT IS IN BED SLEEPING, NO SIGNS OF SOB OR DISTRESS. NO COMPLAINTS OF PAIN AT THIS TIME. IV ACCESS IS INTACT AND PATENT.WOUND CARE RENDERED. ASPIRATION PRECAUTIONS MAINTAINED.BED IS IN LOW AND LOCKED POSITION, CALL LIGHT WITHIN REACH. WILL ENDORSE TO DAY SHIFT.
[2017-06-08 06:35] LABS: BASOPHILS % (AUTO) 0.1 % (0.0-2.0); HEMATOCRIT 32 % (39-51); HEMOGLOBIN 10.7 g/dL (13.5-17.5); LYMPHOCYTES # (AUTO) 0.8 /CMM (0.8-4.8); LYMPHOCYTES % (AUTO) 8.2 % (20.0-44.0); MEAN CORPUSCULAR HEMOGLOBIN 30 PG (26.0-33.0); MEAN CORPUSCULAR HGB CONC 33 g/dl (31.0-36.0); MEAN CORPUSCULAR VOLUME 91 fL (80-96); MONOCYTES # (AUTO) 0.5 /CMM (0.1-1.30); NEUTROPHILS # (AUTO) 8.4 /CMM (1.8-8.9); NEUTROPHILS % (AUTO) 86.7 % (43.0-81.0); PLATELET COUNT (AUTO) 384 /CMM (150-450); RDW COEFFICIENT OF VARIATION 13.4 (11.5-15.0); RED BLOOD CELL COUNT(AUTO) 3.54 MIL/uL (4.5-6.0); WHITE BLOOD COUNT (AUTO) 9.6 K/uL (4.3-11.0)
[2017-06-08 07:07] LABS: CALCIUM, SERUM 8.9 mg/dL (8.5-10.1); CARBON DIOXIDE 30 mmol/L (21-32); CHLORIDE 103 mmol/L (98-107); CREATININE 0.7 mg/dL (0.6-1.3); GLUCOSE 135 mg/dL (74-106); MAGNESIUM 1.9 mg/dL (1.8-2.4); PHOSPHORUS 3.8 mg/dL (2.5-4.9); SODIUM SERUM 142 mmol/L (136-145); UREA NITROGEN, BLOOD 12 mg/dL (7-18)
--- NOTE | 2017-06-08 07:18 | NUR ---
MS RN OPENING NOTES RECEIVED PATIENT COMFORTABLY ASLEEP IS IN BED, EASILY AWAKENS. HOB ELEVATED. A/O X1, NO SIGNS OF PAIN OR DISCOMFORTS OBSERVED AT THIS TIME. ON 02 VIA N/C @ 3LPM, TOLERATING WELL WITH NO SOB NOTED. IV ACCESS ON RIGHT FA INTACT AND PATENT. ASPIRATION PRECAUTIONS MAINTAINED. BED IN LOW AND LOCKED POSITION WITH SIDE-RAILS UP X2. CALL LIGHT WITHIN REACH. ALL SAFETY MEASURES IN PLACED. WILL CONTINUE TO MONITOR PT ACCORDINGLY
[2017-06-08] MEDS: PANTOPRAZOLE 40 MG TABLET.DR PO SCH (07:34)
[2017-06-08 08:00] VITALS: BP 97/53
[2017-06-08] MEDS: AMLODIPINE BESYLATE 5 MG TABLET PO SCH (09:00)
[2017-06-08] MEDS: DOCUSATE SODIUM 100 MG CAPSULE PO SCH ×2 (09:11→17:34)
[2017-06-08] MEDS: THIAMINE HCL 100 MG TABLET PO SCH (09:11)
[2017-06-08] MEDS: LACTOBACILLUS RHAMNOSUS GG 1 EACH CAP.SPRINK PO SCH ×2 (09:11→17:34)
[2017-06-08] MEDS: DIVALPROEX SODIUM 125 MG CAP.SPRINK PO SCH ×2 (09:11→17:34)
[2017-06-08] MEDS: methylPREDNISolone SOD SUCC 40 MG/ML VIAL IV SCH (09:11)
[2017-06-08] MEDS: ASCORBIC ACID 500 MG TABLET PO SCH (09:11)
[2017-06-08] MEDS: FOLIC ACID 1 MG TABLET PO SCH (09:12)
[2017-06-08] MEDS: Z GUARD REMEDY 2 OZ OINT TP SCH (09:12)
[2017-06-08] MEDS: MULTIVITAMINS,THERAGRAN 1 UDTAB TABLET PO SCH (09:12)
[2017-06-08] MEDS: GABAPENTIN 100 MG CAPSULE PO SCH ×3 (09:12→17:34)
[2017-06-08] MEDS: HYDROGEL DRESSING 90 GM TUBE TP SCH (09:13)
[2017-06-08] MEDS: LEVETIRACETAM (500MG) 500 MG in IV NS 0.9% 100 ML IV SCH ×2 (09:15→21:02)
[2017-06-08] MEDS: ZINC SULFATE 220 MG CAPSULE PO SCH (09:15)
[2017-06-08 16:00] VITALS: BP 125/65
--- NOTE | 2017-06-08 19:04 | NUR ---
MS RN CLOSING NOTES PT AWAKE AND RESTING BED AT THIS TIME. HOB KEPT ELEVATED. A/O X 1, VERBALLY RESPONSIVE AT TIMES. ON 02 VIA N/C AT 3LPM, BREATHING EVEN WITH NO SIGNS OF SOB OR DISTRESS NOTED.IV ACCESS ON RFA INTACT AND PATENT. ASPIRATION PRECAUTIONS MAINTAINED. PT TURNED AND REPOSITIONED IN BED Q 2HRS AND PRN. B/L EXTREMITIES OFF LOADED AT ALL TIMES. KEPT BED LOW AND LOCKED POSITION WITH SIDE-RAILS UP X3. CALL LIGHT WITHIN REACH. ALL SAFETY MEASURES KEPT IN PLACED. ALL NEEDS AND CARE PROVIDED WELL. WILL ENDORSE TO NIGHT NURSE FOR ELDA.
[2017-06-08 20:00] VITALS: BP 96/51
[2017-06-08] MEDS ORDERED: CEFTRIAXONE 1 G in IV D5W 50 ML IV SCH (20:00)
[2017-06-08] MEDS: TRAZODONE 50 MG TABLET PO SCH (21:43)
[2017-06-08] MEDS: GABAPENTIN 300 MG CAPSULE PO SCH (21:43)
[2017-06-09] MEDS: IPRATROPIUM NEB FS 0.5 MG/2.5 ML AMPUL.NEB IH SCH ×4 (03:42→15:09)
[2017-06-09] MEDS: ALBUTEROL HALF STRENGTH 1.25 MG/3 ML VIAL.NEB IH SCH ×4 (03:43→15:09)
--- NOTE | 2017-06-09 06:00 | NUR ---
pt alert, oriented.bedrest, contracted, denies any pain, no acute distress, titrate to 2 liters oxygen nasal cannula with spo2 96-98%.continue with antibiotics,vss,afebrile, incontinent,diaper,kept clean and dry.
--- NOTE | 2017-06-09 07:55 | NUR ---
RN OPENING NOTES RECEIVED PATIENT RESTING COMFORTABLY IN BED WITH EYES CLOSED. EASILY AROUSABLE. AOX1. PATIENT DISORIENTED EASILY DISTRACTED. ABLE TO ANSWER QUESTIONS AT TIMES. COMPLAINING OF ABD. PAIN. UNABLE TO USE PAIN SCALE. NO S/S OF SOB. NO ACUTE DISTRESS NOTED. RESPIRATIONS EVEN AND UNLABORED. ON NC 3LPM. IV ACCESS RFA 20G X2 PATENT AND INTACT. SATURATED ADEQUATELY. BED LOCKED IN THE LOWEST POSITION WITH SIDE RAILS UP X2. CALL LIGHT WITHIN REACH. WILL CONTINUE TO MONITOR, ASSESS AND EDUCATE PATIENT THROUGHOUT SHIFT.
[2017-06-09 08:00] VITALS: BP 114/67
[2017-06-09] MEDS ORDERED: methylPREDNISolone SOD SUCC 40 MG/ML VIAL IV SCH (09:00)
[2017-06-09] MEDS: PANTOPRAZOLE 40 MG TABLET.DR PO SCH (10:12)
[2017-06-09] MEDS: FOLIC ACID 1 MG TABLET PO SCH (10:12)
[2017-06-09] MEDS: GABAPENTIN 100 MG CAPSULE PO SCH ×2 (10:13→13:51)
[2017-06-09] MEDS: ASCORBIC ACID 500 MG TABLET PO SCH (10:13)
[2017-06-09] MEDS: LACTOBACILLUS RHAMNOSUS GG 1 EACH CAP.SPRINK PO SCH (10:13)
[2017-06-09] MEDS: DIVALPROEX SODIUM 125 MG CAP.SPRINK PO SCH (10:13)
[2017-06-09] MEDS: AMLODIPINE BESYLATE 5 MG TABLET PO SCH (10:13)
[2017-06-09] MEDS: THIAMINE HCL 100 MG TABLET PO SCH (10:13)
[2017-06-09] MEDS: MULTIVITAMINS,THERAGRAN 1 UDTAB TABLET PO SCH (10:13)
[2017-06-09] MEDS: DOCUSATE SODIUM 100 MG CAPSULE PO SCH (10:13)
[2017-06-09] MEDS: ZINC SULFATE 220 MG CAPSULE PO SCH (10:13)
[2017-06-09] MEDS: Z GUARD REMEDY 2 OZ OINT TP SCH (10:14)
[2017-06-09] MEDS: HYDROGEL DRESSING 90 GM TUBE TP SCH (10:14)
[2017-06-09] MEDS ORDERED: predniSONE 20 MG TABLET PO SCH (13:00)
--- NOTE | 2017-06-09 13:00 | NUR ---
RN NOTES PATIENT CONDITION REMAINS UNCHANGED, PATIENT IS STABLE. [facility] WILL CONTINUE TO MONITOR.
[2017-06-09 16:00] VITALS: BP 104/55
[2017-06-09 17:15] VITALS: BP 92/50
--- NOTE | 2017-06-09 17:44 | NUR ---
RN CLOSING NOTES (DISCHARGE) PATIENT REMAINED IN STABLE CONDITION THROUGHOUT CARE. PATIENT UNABLE TO COMPREHEND DISCHARGE AND EXIT CARE DUE TO CONDITION. PATIENT IS AOX1. DISCHARGE SIGNED BY TWO RNS. SATURATING ADEQUATELY ON 3LPM. PATIENT PICKED UP BY AMBULANCE. REPORT GIVEN TO TIRSO LAST AT [facility] FOR READMISSION. ALL NEEDS MET, ALL MEDS GIVEN APPROPRIATE. IN THE EVENT OF AN EMERGENCY, PATIENT TO RETURN TO EMERGENCY ROOM. VS STABLE AND WNL.
[2017-06-09] MEDS ORDERED: LEVETIRACETAM (250 MG) 250 MG TABLET PO SCH (21:00)
== END 2017-06-09 17:45 | DRG 193 ==
LOC: ER 21:23 → MED 06-06 00:39 → TELE 06-06 00:47 → MED 06-07 00:01
PROVIDERS: ADMIT Internal Medicine; ATTEND Internal Medicine
DX: J15.9 Unspecified bacterial pneumonia (principal); G92 Toxic encephalopathy; J96.01 Acute respiratory failure with hypoxia; L89.152 Pressure ulcer of sacral region, stage 2; I13.0 Hypertensive heart and chronic kidney disease with heart failure and stage 1 through stage 4 chronic kidney disease, or unspecified chronic kidney disease; G62.9 Polyneuropathy, unspecified; I50.32 Chronic diastolic (congestive) heart failure; L89.610 Pressure ulcer of right heel, unstageable; N39.0 Urinary tract infection, site not specified; J44.0 Chronic obstructive pulmonary disease with (acute) lower respiratory infection; F03.90 Unspecified dementia, unspecified severity, without behavioral disturbance, psychotic disturbance, mood disturbance, and anxiety; D64.9 Anemia, unspecified; G40.909 Epilepsy, unspecified, not intractable, without status epilepticus; N18.9 Chronic kidney disease, unspecified; F41.9 Anxiety disorder, unspecified; K21.9 Gastro-esophageal reflux disease without esophagitis; I25.10 Atherosclerotic heart disease of native coronary artery without angina pectoris; Z79.899 Other long term (current) drug therapy; L89.890 Pressure ulcer of other site, unstageable; Z99.81 Dependence on supplemental oxygen
CPT/HCPCS: 36415; 36600; 70450-TC; 71010-TC; 80048-TC; 80053-TC; 80076-TC; 80164-TC; 81000-TC; 82803-TC; 83605-TC; 83735-TC; 83880; 84100-TC; 84484-TC; 85025-TC; 87040-TC; 87086-TC; 92521; 92526; A4606; A6248; A6402; J0696; J1953; J2270; J2543; J2920; J3370; J3490; J7030; J7050; J7060; Z7610

== ENCOUNTER 2018-02-04 14:34 | Inpatient (IN) | payer MEDICARE, OTHER ==
[~2018-02-04] VITALS: Ht 177.8 cm; Wt 62.6 kg
[~2018-02-04 14:34] MED LIST changes: +ACID1TAB12 PO; +ALBU1.257 IH; +BISA10SU8 RC; -DIVA125C PO; +DIVA125C2 PO; +DOCU-141 PO; +MAGN400O6 PO; +MULT-659 PO; +NA P133E RC; -TRAZ-144 PO; +TRAZ-182 PO; +ZINC220C8 PO
--- NOTE | 2018-02-04 15:00 | NUR ---
[id number] FROM SNF FOR GENERALIZED WEAKNESS X1.5HR, BS-122. PT AWAKE, CONFUSED. CONTRACTED EXTREMITIES. SEEN BY MD FOR EVAL. VSS. SAFETY AND COMFORT MEASURES PROVIDED. IV ACCESS CAD OPERATOR. WILL MONITOR.
[2018-02-04 15:33] LABS: BASOPHILS # (AUTO) 0.1 /CMM (0.0-0.2); BASOPHILS % (AUTO) 0.8 % (0.0-2.0); EOSINOPHILS % (AUTO) 1.2 % (0.0-6.0); HEMATOCRIT 38 % (39-51); HEMOGLOBIN 12.6 g/dL (13.5-17.5); LYMPHOCYTES # (AUTO) 1.5 /CMM (0.8-4.8); LYMPHOCYTES % (AUTO) 19.2 % (20.0-44.0); MEAN CORPUSCULAR HGB CONC 34 g/dl (31.0-36.0); MEAN CORPUSCULAR VOLUME 90 fL (80-96); MONOCYTES # (AUTO) 0.6 /CMM (0.1-1.30); MONOCYTES % (AUTO) 7.1 % (2.0-12.0); NEUTROPHILS # (AUTO) 5.7 /CMM (1.8-8.9); NEUTROPHILS % (AUTO) 71.7 % (43.0-81.0); PLATELET COUNT (AUTO) 411 /CMM (150-450); RDW COEFFICIENT OF VARIATION 13.3 (11.5-15.0); RED BLOOD CELL COUNT(AUTO) 4.21 MIL/uL (4.5-6.0)
--- NOTE | 2018-02-04 15:40 | NUR ---
IV ACEESS STARTED. BLOOD AND CULTURES DRAWN FOR LABS. URINE SAMPLE OBTAINED, SENT.
[2018-02-04 15:42] LABS: APPEARANCE,URINE Cloudy (CLEAR); BILIRUBIN,URINE Negative (NEGATIVE); BLOOD, URINE Moderate Ery/uL (NEGATIVE); COLOR,URINE Yellow (YELLOW); KETONES,URINE Trace (NEGATIVE); LEUKOCYTE ESTERASE ,URINE Large (NEGATIVE); NITRITE, URINE Positive (NEGATIVE); PROTEIN,URINE 100 mg/dl (NEGATIVE); UGLUCOSE Negative (NEGATIVE)
[2018-02-04 15:48] LABS: CALCIUM, SERUM 9.1 mg/dL (8.5-10.1); CARBON DIOXIDE 30 mmol/L (21-32); CHLORIDE 103 mmol/L (98-107); CREATININE 0.8 mg/dL (0.6-1.3); GLUCOSE 140 mg/dL (74-106); INR 0.96 (0.85-1.15); POTASSIUM 3.8 mmol/L (3.5-5.1); SODIUM SERUM 140 mmol/L (136-145); UREA NITROGEN, BLOOD 19 mg/dL (7-18)
[2018-02-04 15:51] LABS: BACTERIA,URINE Moderate /HPF (None Seen); WBC,URINE 81-100 /HPF (0-3)
[2018-02-04 15:52] LABS: SQUAMOUS EPITHELIAL CELL,UR Few /HPF (None Seen); URINE AMORPHOUS PHOSPHATES Moderate /HPF (None Seen)
[2018-02-04 15:54] LABS: ALANINE AMINOTRANSFERASE 12 U/L (12-78); ALBUMIN 3.1 g/dL (3.4-5.0); ALKALINE PHOSPHATASE 74 U/L (46-116); ASPARTATE AMINOTRANSFERASE 12 U/L (15-37); BILIRUBIN,DIRECT 0.1 mg/dL (0.0-0.2); BILIRUBIN,TOTAL 0.3 mg/dL (0.2-1.0); TOTAL PROTEIN, SERUM 7.8 g/dL (6.4-8.2); TROPONIN I 0.018 ng/mL (0.00-0.056)
[2018-02-04] MEDS ORDERED: IV NS 0.9% 1,000 ML BAG IV ONE (16:00)
[2018-02-04] MEDS ORDERED: PIPERACILLIN /TAZOBACTAM 3.375 G in IV D5W 50 ML IV ONE (16:00)
--- NOTE | 2018-02-04 16:40 | NUR ---
PT TAKEN TO CT.
--- NOTE | 2018-02-04 17:05 | NUR ---
Sonal adame in [facility] - 02/04/18 at 1706 by LUCILLE CALLED NURSING MANAGER WELLNESS AND REQUESTED A TELE BED FOR THIS PT.
--- NOTE | 2018-02-04 17:06 | NUR ---
CALLED NURSING SUP AND REQUESTED A MED SURG BED FOR THIS PT.
[2018-02-04] MEDS ORDERED: OMEP20CA10 PO (17:29)
[2018-02-04] MEDS ORDERED: DIVA250T4 PO (17:29)
[2018-02-04] MEDS ORDERED: ACET325T53 PO (17:29)
[2018-02-04] MEDS ORDERED: AMIN30LI2 PO (17:29)
[2018-02-04] MEDS ORDERED: LEVE100S PO (17:29)
[2018-02-04] MEDS ORDERED: SACC250C PO (17:29)
[2018-02-04] MEDS ORDERED: ASPIRIN 325 MG TABLET PO ONE (17:30)
--- NOTE | 2018-02-04 17:33 | NUR ---
CALLED THE OFFICE OF DR HERNANDEZ AND A PAGE WAS SENT OUT TO THE MD MEDICAL RECORDS MANAGER, DR FARMER
[2018-02-04] MEDS ORDERED: ASPIRIN 325 MG TABLET ONE (17:35)
--- NOTE | 2018-02-04 18:16 | NUR ---
CALLED NURSING WOOD CUTTER AND REQUESTED A TELE BED FOR THIS PT.
--- NOTE | 2018-02-04 18:23 | NUR ---
TELE #: [id number] DX: UTI AND ENCEPHALOPATHY ADM MD: DR FARMER
--- NOTE | 2018-02-04 18:30 | NUR ---
REPORT GIVEN TO STANISLAV CHAHAL FOR TELE 325-1
[2018-02-04 18:58] VITALS: BP 122/85
--- NOTE | 2018-02-04 19:00 | NUR ---
TELE/RN NOTES PATIETN ON TELE WITH SR WITH PBBS, REPORTED,HEADACHE UPON CHANGE OF POSITION BUT TOLERABLE, OXYGEN GOR ASSIST IN BREATHING, REFUSED TO USE NASAL AT TIMES, REQUIRE FREQUENT MONITORING BETWEEN 92-95 .
--- NOTE | 2018-02-04 19:00 | NUR ---
TELE/RN NOTES RECEIVED PATIETN FROM AM RN FOR ADMISSION, ARRIVE FROM ER ON A GURNEY, AWAKE, ALERT X2, ABLE TO OPEN EYES AND PARTICIPATIVE WITH CARE, NO PAIN REPORTED, B/P CHECK 122/85, PULSE-74, TEMP-97.6, ON OXYGEN AT 3L AT 99 %, MONITORING FOR ANY CHANGES, APPEAR WEAK, CONTRACTED BLE,INCONTINENT, ABLE TO SPEAK CLEARLY, MD FARMER ORDER TO CONTINUE MEDS AND VERIFY IN AM. PATIETN FROM ASSISTED WITH POLST ORDER [facility],ON PUREED HENRY DIET, TELE SR REGULAR, BM SEPSIS PROTOCOL EVALUATED BY ER.CALL LIGHTS WITHIN REACH, WILL CONTINUE TO MONITOR.
[2018-02-04 20:00] VITALS: BP 122/85
--- NOTE | 2018-02-04 22:03 | NUR ---
MD FARMER CONTACTED FOR ADMISSION ORDER WITH ORDER TO CONTINUE PREVIOUS ORDER FROM [facility], ON DNR STATUS, PUREE HENRY HONEY THICKENED LIQUID. MADE AWARE CT HEAD RESULT W/NOACUTE HEMORRHAGE. PCP CRISTOPHER PCP/
--- NOTE | 2018-02-04 22:05 | NUR ---
LABS ORDERED BY MD FARMER IN AM:CBC, BNP, MAGNESIUM, PHOSPHORUS
[2018-02-05] VITALS: BP 108/47
[2018-02-05 03:12] VITALS: BP 108/47
[2018-02-05 04:00] VITALS: BP 113/50
--- NOTE | 2018-02-05 05:43 | NUR ---
POLST ORDER DNR NOT HOSPICE FOR CORRECTION
--- NOTE | 2018-02-05 06:51 | NUR ---
patient refused to have am lab draw informed the risk and benefit, zev stated no and will follow up again later after breakfast by lab.
--- NOTE | 2018-02-05 06:54 | NUR ---
325-1 SHOTBLAST OPERATOR NOTES PATIENT ALERT, ORIENTED. AWAKE,NO PAIN REPORTED, REPOSITION FOR COMFORT, ABLE TO SLEEP DURING THE NIGHT, CALL LIGHTS WITHIN REACH, BED IN LOCK POSITION, PROVIDED THICKENED FLUIDS. WILL ENDORSE TO AM RN FOR ELDA.
--- NOTE | 2018-02-05 07:05 | NUR ---
SIVAKUMAR CHAHAL OPENING NOTES. PT RECEIVED A&0X2, PT TELE SR WITH BBB. PT TOLERATING ROOM AIR WITHOUT SOB OR RESP DISTRESS, PT DENIES PAIN. PT WITH IVC AT R FA AND L FA, L FA IVC SALINE FLUSH PATENT. PT REFUSED LINE CARE ON RIGHT. PT VERBALLY ABUSIVE TO ASSISTANT TRACK AND FIELD COACH AND REPORTEDLY REFUSED AM LABS. PT BED IN LOWEST LOCKED POSITION WITH HANDRAILSX2 AND CALL COMBS WITHIN REACH. PT BRIEFED ON TODAY'S POC BUT WILL REQUIRE FURTHER DIRECTION AND REORIENTATION.
[2018-02-05 08:00] VITALS: BP 119/62
[2018-02-05] MEDS ORDERED: HYDROCODONE/APAP 5/325MG 1 EACH TABLET PO PRN (08:30)
[2018-02-05] MEDS ORDERED: ZOLPIDEM TARTRATE 5 MG TABLET PO PRN (08:30)
[2018-02-05] MEDS ORDERED: MAGNESIUM HYDROXIDE 30 ML UDC PO PRN (08:30)
[2018-02-05] MEDS ORDERED: MISCELLANEOUS MED 1 EA EA PO PRN (08:30)
[2018-02-05] MEDS ORDERED: BISACODYL SUPP (10 MG) 10 MG/SUPP.RECT SUPP.RECT RC PRN (08:30)
[2018-02-05] MEDS ORDERED: ACETAMINOPHEN 325 MG TABLET PO PRN (08:30)
[2018-02-05] MEDS ORDERED: NA PHOS,M-B/NA PHOS,DI-BA 1 EA ENEMA RC PRN (08:30)
[2018-02-05] MEDS: MULTIVIT, IRON, MIN NO. 8, FA 1 TAB PO SCH (09:18)
[2018-02-05] MEDS: ZINC SULFATE 220 MG CAPSULE PO SCH (09:18)
[2018-02-05] MEDS: GABAPENTIN 100 MG CAPSULE PO SCH ×3 (09:18→17:20)
[2018-02-05] MEDS: ACIDOPHILUS/BULGARICUS 1 EACH TAB.CHEW PO SCH ×2 (09:18→17:20)
[2018-02-05] MEDS: DIVALPROEX SODIUM 125 MG CAP.SPRINK PO SCH ×3 (09:18→21:48)
[2018-02-05] MEDS: FOLIC ACID 1 MG TABLET PO SCH (09:18)
[2018-02-05] MEDS: THIAMINE HCL 100 MG TABLET PO SCH (09:18)
[2018-02-05] MEDS: ASCORBIC ACID 500 MG TABLET PO SCH (09:19)
[2018-02-05] MEDS: LEVETIRACETAM SOL (5 ML) 100 MG/ML UDC PO SCH ×2 (09:19→21:47)
[2018-02-05] MEDS: DOCUSATE SODIUM 100 MG CAPSULE PO SCH ×2 (09:19→17:20)
[2018-02-05] MEDS: PANTOPRAZOLE 40 MG TABLET.DR PO SCH (09:27)
[2018-02-05 09:40] LABS: BASOPHILS # (AUTO) 0.1 /CMM (0.0-0.2); BASOPHILS % (AUTO) 1.3 % (0.0-2.0); EOSINOPHILS % (AUTO) 2.5 % (0.0-6.0); HEMATOCRIT 36 % (39-51); HEMOGLOBIN 12.4 g/dL (13.5-17.5); LYMPHOCYTES # (AUTO) 1.3 /CMM (0.8-4.8); LYMPHOCYTES % (AUTO) 21.4 % (20.0-44.0); MEAN CORPUSCULAR HGB CONC 34 g/dl (31.0-36.0); MEAN CORPUSCULAR VOLUME 90 fL (80-96); MONOCYTES # (AUTO) 0.5 /CMM (0.1-1.30); NEUTROPHILS # (AUTO) 4.2 /CMM (1.8-8.9); NEUTROPHILS % (AUTO) 66.8 % (43.0-81.0); PLATELET COUNT (AUTO) 310 /CMM (150-450); RDW COEFFICIENT OF VARIATION 14.5 (11.5-15.0); RED BLOOD CELL COUNT(AUTO) 4.04 MIL/uL (4.5-6.0); WHITE BLOOD COUNT (AUTO) 6.3 K/uL (4.3-11.0)
--- NOTE | 2018-02-05 10:00 | NUR ---
MSRN. PT ENCOURAGED TO ALLOW LAB DRAWS AND ACCEPTS AT THIS TIME.
[2018-02-05 10:10] LABS: B-TYPE NATRIURETIC PEPTIDE 653 PG/ML (0-125); CALCIUM, SERUM 8.9 mg/dL (8.5-10.1); CARBON DIOXIDE 24 mmol/L (21-32); CHLORIDE 104 mmol/L (98-107); CREATININE 0.6 mg/dL (0.6-1.3); GLUCOSE 106 mg/dL (74-106); MAGNESIUM 1.8 mg/dL (1.8-2.4); PHOSPHORUS 3.2 mg/dL (2.5-4.9); POTASSIUM 3.7 mmol/L (3.5-5.1); SODIUM SERUM 138 mmol/L (136-145); UREA NITROGEN, BLOOD 13 mg/dL (7-18)
--- NOTE | 2018-02-05 10:30 | NUR ---
MSIsraN. PT D/C'D FROM [facility] PER MD CABRERA.
[2018-02-05] MEDS: IPRATROPIUM NEB FS 0.5 MG/2.5 ML AMPUL.NEB IH SCH ×4 (11:30→23:23)
[2018-02-05] MEDS: ALBUTEROL HALF STRENGTH 1.25 MG/3 ML VIAL.NEB IH SCH ×4 (11:30→23:23)
[2018-02-05] MEDS ORDERED: IPRATROPIUM NEB FS 0.5 MG/2.5 ML AMPUL.NEB NEB PRN (15:00)
[2018-02-05] MEDS ORDERED: ALBUTEROL FS 2.5 MG/0.5 ML VIAL.NEB NEB PRN (15:00)
[2018-02-05] MEDS: CEFTRIAXONE 1 G in IV NS 0.9% 50 ML IV SCH (15:53)
[2018-02-05 16:00] VITALS: BP 117/56
[2018-02-05] MEDS: PROSOURCE / PROSTAT (PYXIS) 30 ML UDC PO SCH (17:26)
--- NOTE | 2018-02-05 18:52 | NUR ---
PRODUCTION LABORER CLOSING NOTES. PT REMAINS A&0X1-2, PT TELE SR 84. PT TOLERATING ROOM AIR WITHOUT SOB OR RESP DISTRESS, PT DENIES PAIN. PT WITH IVC AT R FA AND L FA SL. PT REFUSED WOUND CAREX3. PT REPOSITIONED Q2HR, VERBALLY ABUSIVE DURING POSITION CHANGES. PT BED IN LOWEST LOCKED POSITION WITH HANDRAILSX2 AND CALL COMBS WITHIN REACH. ALL DAY NURSE DUTIES ALLOWED COMPLETED AND PT IS WITHOUT CONCERN OR COMPLAINT AT THIS TIME. WILL ENDORSE TO NIGHT NURSE AT BEDSIDE FOR ELDA.
--- NOTE | 2018-02-05 19:30 | NUR ---
MS/RN OPENING NOTES PT RECEIVED AWAKE, HOB ELEVATED. ON ROOM AIR, BREATHING EVEN AND UNLABORED. DENIES SOB OR PAIN AT THIS TIME. BLE CONTRACTED. PT IS CALM AND PLEASANT AT THIS TIME. IV TO RFA AND LFA PATENT AND INTACT. BED IN LOW/LOCKED POSITION WITH CALL LIGHT IN REACH. SIDE RAILS UPX3 WITH BED ALARM ON FOR SAFETY. WILL CONTINUE TO MONITOR
[2018-02-05 20:00] VITALS: BP 108/61
[2018-02-05] MEDS: TRAZODONE 50 MG TABLET PO SCH (21:48)
[2018-02-05] MEDS: GABAPENTIN 300 MG CAPSULE PO SCH (21:48)
--- NOTE | 2018-02-05 21:57 | NUR ---
MS/RN NOTES LICENSED CERTIFIED ORTHOTIST PHARMACY PAGED. SPOKE TO GARRY. NOTIFIED HER THAT PT IS ON PUREED DIET AND HAS AN ORDER FOR DEPAKOTE TAB. CHANGED TO SPRINKLE. ADMINISTERED ORDERED.
[2018-02-05] MEDS ORDERED: DIVALPROEX SODIUM 250 MG TABLET.DR PO SCH (22:00)
[2018-02-06] MEDS: ALBUTEROL HALF STRENGTH 1.25 MG/3 ML VIAL.NEB IH SCH ×6 (03:08→23:33)
[2018-02-06] MEDS: IPRATROPIUM NEB FS 0.5 MG/2.5 ML AMPUL.NEB IH SCH ×6 (03:08→23:33)
[2018-02-06 06:31] LABS: BASOPHILS % (AUTO) 0.3 % (0.0-2.0); EOSINOPHILS % (AUTO) 2.9 % (0.0-6.0); HEMATOCRIT 35 % (39-51); HEMOGLOBIN 11.7 g/dL (13.5-17.5); LYMPHOCYTES # (AUTO) 1.9 /CMM (0.8-4.8); LYMPHOCYTES % (AUTO) 29.3 % (20.0-44.0); MEAN CORPUSCULAR HGB CONC 34 g/dl (31.0-36.0); MEAN CORPUSCULAR VOLUME 91 fL (80-96); MONOCYTES # (AUTO) 0.6 /CMM (0.1-1.30); MONOCYTES % (AUTO) 8.7 % (2.0-12.0); NEUTROPHILS # (AUTO) 3.8 /CMM (1.8-8.9); NEUTROPHILS % (AUTO) 58.8 % (43.0-81.0); PLATELET COUNT (AUTO) 279 /CMM (150-450); RDW COEFFICIENT OF VARIATION 14.4 (11.5-15.0); WHITE BLOOD COUNT (AUTO) 6.4 K/uL (4.3-11.0)
[2018-02-06 06:37] LABS: CALCIUM, SERUM 8.7 mg/dL (8.5-10.1); CARBON DIOXIDE 26 mmol/L (21-32); CHLORIDE 106 mmol/L (98-107); CREATININE 0.6 mg/dL (0.6-1.3); GLUCOSE 89 mg/dL (74-106); MAGNESIUM 1.8 mg/dL (1.8-2.4); PHOSPHORUS 4.1 mg/dL (2.5-4.9); POTASSIUM 3.6 mmol/L (3.5-5.1); SODIUM SERUM 141 mmol/L (136-145); UREA NITROGEN, BLOOD 10 mg/dL (7-18)
--- NOTE | 2018-02-06 06:44 | NUR ---
WOUND CARE CONSULT WOUND CARE RECEIVED CONSULT FOR WOUND. WOUND CARE WILL DEFER CONSULT AND ALL TREATMENT PLANS TO SURGICAL TEAM WHO ARE CURRENTLY FOLLOWING. PATIENT WITH VALDO AT 14, ALL PRESSURE ULCER PREVENTION MEASURES NOTED TO BE IN PLACE. WILL SEE PRN.
--- NOTE | 2018-02-06 07:01 | NUR ---
MS/RN CLOSING NOTES PT ASLEEP, EASILY AROUSABLE. ON 2L O2 VIA NC, BREATHING EVEN AND UNLABORED. NO SOB OR PAIN NOTED. NO FACIAL GRIMACING. PT IS CALM AND COOPERATIVE THROUGHOUT SHIFT. BLE CONTRACTED. HEELS OFFLOADED. TURNED/REPOSITIONED Q2H. IV TO RFA AND LFA PATENT AND INTACT. KEPT PT COMFORTABLE. SLEPT WELL DURING THE NIGHT. BED IN LOW/LOCKED POSITION WITH CALL LIGHT IN REACH. SIDE RAILS UPX3 WITH BED ALARM ON FOR SAFETY. WILL ENDORSE TO DAY SHIFT RN ELDA.
[2018-02-06] MEDS: PANTOPRAZOLE 40 MG TABLET.DR PO SCH ×2 (07:30→08:42)
--- NOTE | 2018-02-06 07:31 | NUR ---
MS/RN OPENING NOTES RECEIVED PATIENT AWAKE, HOB ELEVATED. ON ROOM AIR, BREATHING EVEN AND UNLABORED. DENIES SOB OR PAIN AT THIS TIME. BLE CONTRACTED NOTED. PATIENT IS CALM AND PLEASANT AT THIS TIME. IV TO RFA AND LFA PATENT AND INTACT. BED IN LOW/LOCKED POSITION WITH CALL LIGHT IN REACH. SIDE RAILS UPX3 WITH BED ALARM ON FOR SAFETY. WILL CONTINUE TO MONITOR ACCORDINGLY
[2018-02-06 08:00] VITALS: BP 108/58
[2018-02-06] MEDS: ZINC SULFATE 220 MG CAPSULE PO SCH ×2 (08:42→09:00)
[2018-02-06] MEDS: ASCORBIC ACID 500 MG TABLET PO SCH ×2 (08:42→09:00)
[2018-02-06] MEDS: MULTIVIT, IRON, MIN NO. 8, FA 1 TAB PO SCH ×2 (08:42→09:00)
[2018-02-06] MEDS: FOLIC ACID 1 MG TABLET PO SCH ×2 (08:42→09:00)
[2018-02-06] MEDS: ACIDOPHILUS/BULGARICUS 1 EACH TAB.CHEW PO SCH ×3 (08:42→16:41)
[2018-02-06] MEDS: THIAMINE HCL 100 MG TABLET PO SCH ×2 (08:42→09:00)
[2018-02-06] MEDS: DIVALPROEX SODIUM 125 MG CAP.SPRINK PO SCH ×4 (08:42→21:54)
[2018-02-06] MEDS: DOCUSATE SODIUM 100 MG CAPSULE PO SCH ×3 (08:42→16:41)
[2018-02-06] MEDS: GABAPENTIN 100 MG CAPSULE PO SCH ×4 (08:43→16:42)
[2018-02-06] MEDS: LEVETIRACETAM SOL (5 ML) 100 MG/ML UDC PO SCH ×3 (08:43→21:52)
[2018-02-06] MEDS: NEOMY SULF/BACITRAC ZN/POLY 15 GM TUBE TP SCH (08:56)
--- NOTE | 2018-02-06 09:30 | NUR ---
RN NOTES: REFUSED AM MEDS PATIENT REFUSED AM MEDICATIONS. EXPLAINED THE RISK OF NOT TAKING MEDICATIONS BUT PATIENT STILL REFUSED. PATIENT SPIT THE MEDICATIONS OUT AND STARTED BEING VERBALLY ABUSIVE TO STAFF YELLING "GET THE F*#CK OUT OF HERE! I DONT CARE IF ITS MEDICATIONS! I DONT WANT IT!". WILL NOTIFY MD. WILL CONTINUE TO MONITOR ACCORDINGLY.
--- NOTE | 2018-02-06 11:00 | NUR ---
RN NOTES DR HERNANDEZ WAS NOTIFIED OF PATIENT'S REFUSAL OF AM MEDICATIONS.
[2018-02-06 16:00] VITALS: BP_SYST 108; BP_SYST 96; BP_DIAS 53; BP_DIAS 58
[2018-02-06] MEDS: CEFTRIAXONE 1 G in IV NS 0.9% 50 ML IV SCH (16:39)
[2018-02-06] MEDS: PROSOURCE / PROSTAT (PYXIS) 30 ML UDC PO SCH (17:44)
--- NOTE | 2018-02-06 19:18 | NUR ---
MS RN NOTES RECEIVED PATIENT IN BED, RESTING COMFORTABLY AT THIS TIME, AROUSES EASILY, VERBALLY RESPONSIVE. HOB ELEVATED. ASPIRATION PRECAUTION OBSERVED. ON ROOM AIR, BREATHING EVEN AND UNLABORED. DENIES SOB OR PAIN AT THIS TIME. IV SITE ON RFA AND LFA PATENT AND INTACT. NO S/S OF PAIN OR DISCOMFORT AT THSI TIME. BED IN LOW/LOCKED POSITION WITH CALL LIGHT IN REACH. SIDE RAILS UPX3 WITH BED ALARM ON FOR SAFETY. WILL CONTINUE TO MONITOR.
--- NOTE | 2018-02-06 19:30 | NUR ---
RN CLOSING NOTES PATIENT IN STABLE CONDITION. ALL NEEDS ATTENDED AND PROVIDED. TURNED AND REPOSITIONED PATIENT EVERY 2 HRS NEEDED. WOUND CARE DONE. KEPT PATIENT SAFE AND COMFORTABLE. BED IN LOW/LOCKED POSITION, SIDERAILS UPX2, CALL LIGHT IN REACH. ENDORSED TO NIGHT RN FOR ELDA.
[2018-02-06 20:00] VITALS: BP 106/54
[2018-02-06] MEDS: GABAPENTIN 300 MG CAPSULE PO SCH (21:53)
[2018-02-06] MEDS: TRAZODONE 50 MG TABLET PO SCH (21:54)
[2018-02-07] MEDS: IPRATROPIUM NEB FS 0.5 MG/2.5 ML AMPUL.NEB IH SCH ×4 (03:51→14:57)
[2018-02-07] MEDS: ALBUTEROL HALF STRENGTH 1.25 MG/3 ML VIAL.NEB IH SCH ×4 (03:51→14:57)
[2018-02-07 04:10] LABS: IMMUNOGLOBULIN A, SERUM 226 mg/dL (61-437); IMMUNOGLOBULIN G, SERUM 1037 mg/dL (700-1600); IMMUNOGLOBULIN M, SERUM 593 mg/dL (15-143)
--- NOTE | 2018-02-07 06:56 | NUR ---
MS RN NOTES PATIENT IN BED, RESTING COMFORTABLY AT THIS TIME, AROUSES EASILY, VERBALLY RESPONSIVE. HOB ELEVATED. ASPIRATION PRECAUTION OBSERVED. ON ROOM AIR, BREATHING EVEN AND UNLABORED. DENIES SOB OR PAIN AT THIS TIME. IV SITE ON RFA AND LFA PATENT AND INTACT. NO S/S OF PAIN OR DISCOMFORT AT THIS TIME. ALL DUE MEDS GIVEN . BED IN LOW/LOCKED POSITION WITH CALL LIGHT IN REACH. AM CARE RENDERED, TX DONE, PT JEFFERY WELL. SIDE RAILS UPX3 WITH BED ALARM ON FOR SAFETY. ENDORSED TO RAUL CHAHAL ACCORDINGLY. .
--- NOTE | 2018-02-07 07:16 | NUR ---
RN OPENING NOTES RECEIVED PATIENT IN BED, RESTING COMFORTABLY AT THIS TIME, AROUSES EASILY, VERBALLY RESPONSIVE. HOB ELEVATED. ASPIRATION PRECAUTION OBSERVED. ON ROOM AIR, BREATHING EVEN AND UNLABORED. DENIES SOB OR PAIN AT THIS TIME. IV SITE PATENT AND INTACT. NO S/S OF PAIN OR DISCOMFORT AT THS TIME. BED IN LOW/LOCKED POSITION WITH CALL LIGHT IN REACH. SIDE RAILS UP WITH BED ALARM ON FOR SAFETY. WILL CONTINUE TO MONITOR ACCORDINGLY
[2018-02-07 08:00] VITALS: BP 139/61
[2018-02-07] MEDS ORDERED: PANTOPRAZOLE 40 MG/PACK PACK PO SCH (08:33)
[2018-02-07] MEDS: ACIDOPHILUS/BULGARICUS 1 EACH TAB.CHEW PO SCH (08:55)
[2018-02-07] MEDS: FOLIC ACID 1 MG TABLET PO SCH (08:56)
[2018-02-07] MEDS: DIVALPROEX SODIUM 125 MG CAP.SPRINK PO SCH (08:56)
[2018-02-07] MEDS: ASCORBIC ACID 500 MG TABLET PO SCH (08:56)
[2018-02-07] MEDS: THIAMINE HCL 100 MG TABLET PO SCH (08:56)
[2018-02-07] MEDS: ZINC SULFATE 220 MG CAPSULE PO SCH (08:57)
[2018-02-07] MEDS: GABAPENTIN 100 MG CAPSULE PO SCH ×2 (08:57→12:52)
[2018-02-07] MEDS: DOCUSATE SODIUM 100 MG CAPSULE PO SCH (08:57)
[2018-02-07] MEDS: MULTIVIT, IRON, MIN NO. 8, FA 1 TAB PO SCH (08:57)
[2018-02-07] MEDS: LEVETIRACETAM SOL (5 ML) 100 MG/ML UDC PO SCH (08:58)
[2018-02-07] MEDS: NEOMY SULF/BACITRAC ZN/POLY 15 GM TUBE TP SCH (12:52)
--- NOTE | 2018-02-07 16:08 | NUR ---
PL[employer]ER [employer]KER NOTES DISCHARGED PATIENT IN STABLE CONDITION. PICKED UP BY [employer] [employer] [facility], DISCHARGE PAPERWORK GIVEN. PATIENT HAS NO BELONGINGS. REPORT GIVEN TO TIRSO BRAR FROM [facility], DISCHARGE INSTRUCTIONS GIVEN, VERBALIZED UNDERSTANDING. REMOVED RIGHT FOREARM IV NOT PATENT, APPLIED PRESSURE, NO BLEEDING, NO COMPLICATIONS. IV SITE ON LEFT FOREARM INTACT AND PATENT DUE TO CONTINUE IV ABX AT SNF. NAME BAND REMOVED. SKIN PHOTOS TAKEN.
== END 2018-02-07 16:09 | DRG 689 ==
LOC: ER 14:37 → TELE 19:01 → MED 02-05 09:07
PROVIDERS: ADMIT Internal Medicine; ATTEND Internal Medicine
DX: N39.0 Urinary tract infection, site not specified (principal); G93.40 Encephalopathy, unspecified; R53.2 Functional quadriplegia; E44.0 Moderate protein-calorie malnutrition; J44.1 Chronic obstructive pulmonary disease with (acute) exacerbation; Z68.1 Body mass index [BMI] 19.9 or less, adult; F23 Brief psychotic disorder; D63.8 Anemia in other chronic diseases classified elsewhere; G40.909 Epilepsy, unspecified, not intractable, without status epilepticus; F32.9 Major depressive disorder, single episode, unspecified; F41.9 Anxiety disorder, unspecified; I73.9 Peripheral vascular disease, unspecified; K21.9 Gastro-esophageal reflux disease without esophagitis; F03.90 Unspecified dementia, unspecified severity, without behavioral disturbance, psychotic disturbance, mood disturbance, and anxiety; G47.00 Insomnia, unspecified; M62.81 Muscle weakness (generalized); G62.9 Polyneuropathy, unspecified; L60.0 Ingrowing nail; M24.562 Contracture, left knee; M24.561 Contracture, right knee; L89.899 Pressure ulcer of other site, unspecified stage; I12.9 Hypertensive chronic kidney disease with stage 1 through stage 4 chronic kidney disease, or unspecified chronic kidney disease; N18.1 Chronic kidney disease, stage 1; E78.5 Hyperlipidemia, unspecified
CPT/HCPCS: 36415; 70450-TC; 71045-TC; 80048-TC; 80076-TC; 81000-TC; 82784; 83605-TC; 83735-TC; 83880; 84100-TC; 84484-TC; 85025-TC; 85730-TC; 87040-TC; 87081-TC; 87086-TC; 87186-TC; 94799-TC; A4216; A4606; J0696; J1953; J2543; J7030; J7060; Z7610